=== PATIENT | female | born 1945 | race Caucasian/White ===

== ENCOUNTER → 2017-09-20 | Outpatient (CLI) | payer OTHER ==
[~2017-09-20] MED LIST: ASPIR 8181 MG PO; CO Q-10100 MG PO; PERCOCET; RED YEAST RICE600 MG PO; VITAMIN D1000 UNI1 PO
== END ==
LOC: ULTRA 12:58
DX: E04.2 Nontoxic multinodular goiter (principal); C91.10 Chronic lymphocytic leukemia of B-cell type not having achieved remission; R22.1 Localized swelling, mass and lump, neck

== ENCOUNTER → 2018-08-05 | Outpatient (CLI) | payer OTHER | LOC: RAD 09:57 | DX: Z12.31 Encounter for screening mammogram for malignant neoplasm of breast (principal) ==

== ENCOUNTER 2019-01-29 20:22 | Inpatient (IN) | payer OTHER ==
[~2019-01-29] VITALS: Ht 160 cm; Wt 53.3 kg
--- NOTE | ~2019-01-29 | HC ---
[facility] [place] [address] CONSULTATION Name: ISAI FENTON Room #: 240-P ADM IN M.R.#: [id number] Admission: 01/29/19 ������������������ Attend Phys: Roxie Mancilla MD Discharge: ������������������ Date of : 43 Report #: [id number] THIS REPORT FOR: //name// CC: Nelli Mancilla DATE OF SERVICE: 02/02/2019 HISTORY OF PRESENT ILLNESS: The patient is a 73-year-old white female with history of myasthenia gravis, prior breast cancer, status post mastectomy, and chronic lymphocytic leukemia, who was admitted with double vision, problems swallowing, and significant muscle weakness. She has been diagnosed with myasthenia crisis. She is currently in the intensive care unit with close involvement by Neurology. She has had Nephrology involved, was placed on IVIG and is now getting plasmapheresis. Pulmonary medicine has been monitoring closely and at this point, she has been able to avoid intubation, but her vital capacities are being closely monitored. We are seeing her in rehabilitation medicine consultation. PAST MEDICAL HISTORY: Includes myasthenia gravis diagnosed in September 2018, history of right breast CA, CLL, T and A, laparoscopy, and colonoscopy. MEDICATIONS: Please see the full medication listing. This includes vitamins, herbals, and supplements per report. ALLERGIES: DIPHENHYDRAMINE. HABITS: No history of tobacco or alcohol abuse. SOCIAL HISTORY: She lives alone in a 2-nyla house, one step in, and then 14 inside. Premorbid gait was utilizing a cane in the community. There is a son that lives nearby and a brother and [id number] that are close. REVIEW OF SYSTEMS: No current complaints of chest pain, shortness of breath, or abdominal discomfort. PHYSICAL EXAMINATION: GENERAL: A 73-year-old slender white female in no obvious distress. VITAL SIGNS: Last recorded temperature 97.8, pulse 86, respirations 13, and blood pressure 108/56. NEUROLOGIC: The patient is alert. She follows basic 1 step commands. Facies are symmetric. Central line is in place. Functional range of motion of the upper extremities strength is grade 4-/5 to 3+/5. DTRs are trace to 1. Lower extremities, no focal calf swelling, functional range of motion with strength grade 3+ to 4-/5. DTRs are trace to 1. She has standby assistance with sit to [facility] [address] [place] [address] CONSULTATION Name: ISAI FENTON Room #: 240-P [facility] IN .R.#: [id number] Admission: 01/29/19 ������������������ Attend Phys: Roxie Mancilla MD Discharge: ������������������ Date of : 43 Report #: [id number] stand and did ambulate a short distance with the IV pole. ASSESSMENT: A 73-year-old white female with the following problem list: 1. Myasthenia gravis exacerbation, is getting plasmapheresis. Is being closely monitored regarding her pulmonary condition. 2. Dysphagia. Speech therapy is involved. 3. Cervical disk disease. MRI was reviewed by Neurology and ____ thought to be the main cause of symptoms. 4. History of breast cancer with right mastectomy. 5. Chronic lymphocytic leukemia. PLAN: Therapy evaluations are continuing. She certainly may benefit from a short acute in-hospital inpatient rehabilitation stay to get some therapy to further improve, as far as strength and endurance and also to closely monitor her medical condition and Pulmonary condition. At this point, we will continue to follow along with you regarding her rehab therapy needs. ��������������������������������������������� ���������������������������������������� By: ��������������������������������������������� 1421 0126 Mega Bui MD /nt
[2019-01-29 20:31] VITALS: BP 150/85
[2019-01-29 21:17] LABS: ABSOLUTE NEUTROPHILS 6.7 thou/uL (1.4-8.2); BASOPHILS 0.7 % (0.0-2.0); EOSINOPHILS 1.1 % (0.0-3.0); HEMATOCRIT 41.8 % (37.0-47.0); HEMOGLOBIN 14.1 gm/dL (12.0-15.0); LYMPHOCYTES 43.7 % (24.0-44.0); MCH 30.1 pg (26.0-34.0); MCHC 33.7 g/dL (28.0-37.0); MCV 89.3 fL (80.0-100.0); MONOCYTES 5.4 % (1.0-8.0); PLATELET COUNT 192 thou/uL (150-400); POLYS 49.1 % (36.0-66.0); RBC 4.68 mil/uL (4.20-5.00); RDW 12.8 % (10.5-14.5); WBC 13.7 thou/uL (4.0-11.0)
[2019-01-29 21:24] LABS: ANION GAP 13 mmol/L (7-16); BUN 16 mg/dL (7-18); CHLORIDE 104 mmol/L (98-107); CO2 25 mmol/L (21-32); CREATININE 0.7 mg/dL (0.6-1.0); GLUCOSE 101 mg/dL (74-106); POTASSIUM 4.1 mmol/L (3.5-5.1); SODIUM 142 mmol/L (136-145)
[2019-01-29 21:37] LABS: ALBUMIN 3.8 g/dL (3.4-5.0); MAGNESIUM 1.9 mg/dL (1.8-2.4); SGOT 23 U/L (15-37); SGPT 22 U/L (30-65); TOTAL BILIRUBIN 0.7 mg/dL (<0.1-1.0); TOTAL PROTEIN 7.6 g/dL (6.4-8.2); TROPONIN-I <0.06 ng/mL (<0.06)
--- NOTE | 2019-01-29 23:15 | NUR ---
DR. MACIEL RAYMUNDO (NEUROLOGY) AT BEDSIDE FOR PATIENT EVALUATION
[2019-01-29 23:26] VITALS: BP 150/85
--- NOTE | 2019-01-29 23:29 | NUR ---
PATIENT HANDOFF TOOL SENT TO ICU. NURSE NOTIFIED
[2019-01-29] MEDS ORDERED: LIPITOR10 MG PO (23:40)
[2019-01-29] MEDS ORDERED: ARIMIDEX1 MG PO (23:40)
[2019-01-29] MEDS ORDERED: MESTINON60 MG PO (23:41)
[2019-01-30] VITALS (40 sets, daily range): BP systolic 120–159; BP diastolic 58–81
--- NOTE | 2019-01-30 02:27 | NUR ---
PATIENT ARRIVED TO THE UNIT AT APPROXIMATELY 0045. PATIENT IS AAOX4, MOVES ALL EXTREMETIES WELL, AND IS ON ROOM AIR. VSS. PATIENT HAS NO COMPLAINTS OF PAIN, SOA, OR NAUSEA. FAMILY IS PRESENT AT BEDSIDE. ORDERS RECEIVED AND IMPLEMENTED. ADMISSION COMPLETED, ALLERGIES UPDATED, AND MED REQUISITION HAS BEEN COMPLETED. FALL CONTRACT IS SIGNED AND PLACED IN THE CHART.
[2019-01-30 05:11] LABS: CALCIUM 9.2 mg/dL (8.5-10.1); CREATININE 0.6 mg/dL (0.6-1.0); POTASSIUM 3.8 mmol/L (3.5-5.1)
[2019-01-30 05:17] LABS: HEMATOCRIT 39.7 % (37.0-47.0); HEMOGLOBIN 13.2 gm/dL (12.0-15.0); MCH 29.9 pg (26.0-34.0); MCHC 33.3 g/dL (28.0-37.0); MCV 89.9 fL (80.0-100.0); RBC 4.41 mil/uL (4.20-5.00); RDW 12.6 % (10.5-14.5); WBC 11.6 thou/uL (4.0-11.0)
--- NOTE | 2019-01-30 05:37 | NUR ---
PATIENT HAS REMAINED STABLE THROUGHOUT THIS SHIFT. IMMUNE GLOBULIN IS INFUSING AND PATIENT HAS TOLERATED THE INFUSION WELL. VS REMAIN STABLE. NO S/SX OF ANY RESPIRATORY DISTRESS IS NOTED. HOURLY ROUNDING COMPLETED AND ALL ASSESSMENTS COMPLETED PER ICU PROTOCOL. PATIENT IS PROGRESSING TOWARD GOAL.
--- NOTE | 2019-01-30 08:44 | NUR ---
0842- RT STATES VC TEST RESULTS 1.76. HE WILL RE-CHECK IN 8 HOURS.
--- NOTE | 2019-01-30 10:05 | NUR ---
met with patient who has hx of Myathenia gravis 10/14. Patient resides at home alone. She has walkin shower on second level of home. She reports she holds on railing for steps. She uses a cane in community and not at home unless weak. She is independent with cooking and cleaning and does not drive. Her son lives nearby. Her brother and DAVID assist with driving for apts. Gave information for AD. Patients PCP is Dr Nelli Teague. [email or web address] following.
--- NOTE | 2019-01-30 10:10 | NUR ---
Nutrition: pt admit with myasthenia gravis crisis, improved. ST evaled and diet advanced to mechanically altered with Ensure TID. Pt had some questions related to protein shake/bar use at home which were answered. Ate most of breakfast. Reports recent few # wt decline due to illness. Decrease Ensure to once daily per pt request. Obtained food preferences. Consider low risk.
--- NOTE | 2019-01-30 12:47 | NUR ---
WHEN PT ARRIVED TO HOSPITAL SHE WAS EXPERIENCING MUSCLE WEAKNESS, DOUBLE BLURRY VISION AND TROUBLE SWALLOWING. SYMPTOMS IMPROVED OVERNIGHT AND PT STATED SHE WAS ONLY ABLE TO NOTICE THE DOUBLE BLURRY VISION. PT WAS SET UP WITH HER LUNCH TRAY AND STATED THAT HER SWALLOWING IS WORSE AGAIN AND THAT SHE IS NOTICING HER VISION IS MORE BLURRY AND HER MUSCLES ARE WEAKER. LUNCH TRAY REMOVED FROM PT AND PHYSICIANS PAGED. AWAITING CALL BACK. VSS. WILL CONTINUE TO CLOSELY MONITOR PT. LEFT EYE LID APPEARS TO BE DROOPY. FUTURES TRADER ARE EQUAL BILAT, FEET PUSHES AND PULLS ARE EQUAL, NO DRIFT IS NOTED WITH BILAT UPPER EXTREMITIES.
--- NOTE | 2019-01-30 16:06 | EKG ---
[address] [place] [address] ELECTROCARDIOGRAM REPORT Name: ISAI FENTON Room #: 240-P ADM IN M.R.#: [id number] ������������������ Admission: 01/29/19 ������������������ Attend Phys: Roxie Mnacilla MD Discharge: ������������������ Date of : 43 Report #: [id number] ����������������������������������������������������������������� [id number] THIS REPORT FOR: //name// [facility] ED Test Date: 2019-01-29 Test Time: 20:46:19 Pat Name: ISAI FENTON Department: Room: 240 Gender: F Lead Programmer Analyst: Linda ZAMBRANO : 1945 Requested By: Carlos Ravi Order Number: [id number] MD: Vidal Womack Measurements Intervals [place] Rate: 83 P: 70 MI: 155 QRS: 42 QRSD: 91 T: 69 QT: 352 QTc: 414 Interpretive Statements Sinus rhythm No significant abnormality Compared to ECG 07/18/2015 08:35:42 No significant changes Electronically Signed On 01-30-2019 16:06:31 CDT by Vidal Womack [email or web address] ��������������������������������������������� <ELECTRONICALLY SIGNED> ���������������������������������������� By: Vidal Womack MD, [facility] ��������������������������������������������� 01/30/19 1606 45 Vidal Womack MD, FACC /EPI
[2019-01-31] VITALS (35 sets, daily range): BP systolic 113–172; BP diastolic 48–108
[2019-01-31 05:22] LABS: ALBUMIN 3.1 g/dL (3.4-5.0); CALCIUM 8.8 mg/dL (8.5-10.1); CREATININE 0.5 mg/dL (0.6-1.0); POTASSIUM 3.9 mmol/L (3.5-5.1); TOTAL BILIRUBIN 0.5 mg/dL (<0.1-1.0); TOTAL PROTEIN 7.1 g/dL (6.4-8.2)
[2019-01-31 05:52] LABS: TSH 2.126 uIU/mL (0.358-3.740)
--- NOTE | 2019-01-31 06:02 | NUR ---
ASSUMED PATIENT CARE AT 1900. PATIENT LYING IN BED AND IS AAOX4 AND MOVES ALL EXTREMETIES WELL AND HAD GOOD EXCHANGE ADMINISTRATOR STRENGTH. PATIENT DOES HAVE DIFFICULTY SWALLOWING PILLS AND MILDLY COUGHS. PATIENT VITAL CAPACITY THAT IS ORDERED Q8H IS DECLINING DOWN TO 1.2. DR. MOON NOTIFIED OF THE NEW RESULTS. PATIENT ALSO NEEDED OXYGEN FOR A SHORT PERIOD WHILE SLEEPING SHE WAS DESATING DOWN TO 88%. PATIENT ALSO TIRES FROM GETTING UP EASILY TO COMMODE. HOURLY ROUNDING AND ASSESSMENTS COMPLETED PER ICU PROTOCOL. AT THIS TIME, PATIENT IS NOT PROGRESSING TOWARDS GOAL.
--- NOTE | 2019-01-31 12:37 | NUR ---
AAOX4. VERY PLESANT AND COOPERTIVE. DENIES PAIN. AMBULATED TO TOILET WITH SBA SLOW STEADY GAIT. IV LEFT FOREARM. FAIR APPETITE, DENIES DIFFICULTY WITH SWALLOWING. DENIES VISION PROBLEMS. RESP EVEN AND UNLABORED LUNGS CLEAR ON ROOM AIR.
--- NOTE | 2019-01-31 22:26 | HC ---
[facility] [place] [address] CONSULTATION Name: ISAI FENTON Room #: 240-P ADM IN M.R.#: [id number] Admission: 01/29/19 ������������������ Attend Phys: Roxie Mancilla MD Discharge: ������������������ Date of : 43 Report #: [id number] THIS REPORT FOR: //name// CC: Nelli Mancilla DATE OF SERVICE: 01/29/2019 HISTORY OF PRESENT ILLNESS: This is a 73-year-old female patient who was seen by me in the Emergency Room for myasthenia crisis. The patient started having symptoms of myasthenia in June of last year. It was mainly the weakness and subsequently, she developed diplopia. She was seen by Dr. Mcbride and started on Mestinon and was doing pretty well until about 2 days ago. She started having double vision, some difficulty swallowing and she called Dr. Mcbride today who asked her to come to the Emergency Room. Her vital capacity was only 1.7 liter and she was having significant double vision and swallowing difficulty, although it was not very pronounced. In fact, she took a Mestinon before she came in. In Emergency Room, she got another Mestinon. REVIEW OF SYSTEMS: From the patient only. She does not give me any good history of other medical problems. A 14-point review of system was carried out and was mostly unremarkable. She says that she has a chronic lymphocytic leukemia but her white count is only 13 here, so I suspect it must be mild. Her kidney function is normal. PAST MEDICAL HISTORY: Positive as described above. FAMILY HISTORY: Unremarkable. SOCIAL HISTORY: She drinks alcohol occasionally. PHYSICAL EXAMINATION: NEUROLOGIC: Indicates that this patient is alert, responsive, able to follow simple and complex command. Her mentation looks unremarkable. She has significant ptosis on both sides. She has a double vision. She does complain of some swallowing difficulty, but is able to swallow pills. She is weak in all 4 extremities. Her position sense is intact. CARDIAC: Unremarkable. VITAL SIGNS: Blood pressure is 150/85, respiration is 20. LABORATORY DATA: Her lab is mostly unremarkable except for white count of 13.7. IMPRESSION: This patient has myasthenia crisis. She has bulbar symptoms and she has pretty significant eye symptom. Her vital capacity is low. I discussed all her options with her. I discussed with her that we can start her on [facility] [address] [place] [address] CONSULTATION Name: ISAI FENTON Room #: 240-P [facility] IN .R.#: [id number] Admission: 01/29/19 ������������������ Attend Phys: Roxie Mancilla MD Discharge: ������������������ Date of : 43 Report #: [id number] steroids, but steroids can make her worse initially before they make her better. That can be problem with the borderline vital capacity. We talked about plasmapheresis versus gamma globulin. Initially, the pharmacy informed us that we do not have any gamma globulin. Therefore, contact was made at [facility] about transferring her there, but subsequently gamma globulin was found and the patient wanted to stay here. This patient is a pretty fragile patient at the moment and she needs to be closely monitored. Hopefully, she will be able to take the gamma globulin, but I have discussed all the potential side effects of gamma globulin with her. She needs to be in the ICU. We will go ahead and get the Pulmonary in case she goes down further. She will be watched very closely. All of it was discussed with the patient in detail and she understands that. Time spent 50 minutes, majority of that time counseling and coordinating. ��������������������������������������������� <ELECTRONICALLY SIGNED> ���������������������������������������� By: Navin Garcia MD ��������������������������������������������� 01/31/19 2226 2353 2103 Navin Gacria MD /nt
[2019-02-01] VITALS (43 sets, daily range): BP systolic 105–166; BP diastolic 47–111
[2019-02-01 04:23] LABS: HEMATOCRIT 37.9 % (37.0-47.0); HEMOGLOBIN 12.8 gm/dL (12.0-15.0); MCH 30.3 pg (26.0-34.0); MCHC 33.9 g/dL (28.0-37.0); MCV 89.5 fL (80.0-100.0); PLATELET COUNT 157 thou/uL (150-400); RBC 4.24 mil/uL (4.20-5.00); RDW 12.7 % (10.5-14.5); WBC 10.9 thou/uL (4.0-11.0)
[2019-02-01 04:30] LABS: CALCIUM 8.8 mg/dL (8.5-10.1); CREATININE 0.5 mg/dL (0.6-1.0); POTASSIUM 3.8 mmol/L (3.5-5.1)
[2019-02-01 04:36] LABS: APTT 30.2 Seconds (24.5-32.8); FIBRINOGEN 310.5 mg/dL (210-360); PROTIME 10.6 Seconds (9.3-11.4)
[2019-02-01 05:23] LABS: ABSOLUTE NEUTROPHILS 3.3 thou/uL (1.4-8.2); LARGE PLATELETS RARE; NUCLEATED RBCS 1 /100WBC
[2019-02-01 05:37] LABS: BE(vivo) -0.6 mmol/L (-2 to +3); HCO3 23.5 mmol/L (22.0-26.0); PCO2 37.3 mmHg (35.0-45.0); PO2 77.7 mmHg (80.0-100.0); pH 7.418 (7.360-7.450); sO2 95.8 % (92.0-98.0)
--- NOTE | 2019-02-01 06:04 | NUR ---
ASSUMED PATIENT CARE AT 1900. PATIENT ON COMMODE UPON ENTERING THE ROOM. RECEIVED BEDSIDE REPORT AND HELPED ASSIST PATIENT BACK TO BED. PATIENT BECAME TACHYPNIC AND STATED SHE ISN'T FEELING WELL AND IS SHORT OF AIR. PLACED THE NC ON HER. O2 SATS WERE 96 SO PLACED THE NC FOR COMFORT. PATIENT LIED IN BED QUIETLY UNTIL APPROXIMATELY 2014 WHEN ATTEMPTING TO GIVE HER HER MESTINOL, PATIENT STATED THAT SHE IS HAVING TIGHTNESS IN HER JAWS AND DON'T THINK SHE CAN SWALLOW THE PILL. PATIENT FURTHER STATED IT WAS WORSE THAN YESTERDAY. GAVE PATIENT A SMALL SIP OF WATER TO SEE HOW WELL SHE CAN SWALLOW. PATIENT MANAGED TO SWALLOW THE WATER BUT HELD IT IN HER MOUTH FOR AT LEAST 45 SEC[address] SANDOVAL THAT PATIENT WAS UNABLE TO SWALLOW HER MESTINOL AND THAT SHE HAS NOT RECOVERED FULLY FROM WEARING OUT FROM GETTING UP TO THE COMMODE AT 1845. DR. SANDOVAL STATED THAT HE WANT HER TO REMAIN IN BED AND NOT GET UP AND TO PLACE A BIGGS. HE ALSO WANTS HER TO LIMIT HER TALKING DURING PERIODS OF DISTRESS. DR. SANDOVAL CAME SHORTLY AFTER TO SEE PATIENT. PATIENT AT THIS TIME WAS HAVING DIFFICULTY SPEAKING WELL AND HAD MINOR SLURRED SPEECH. DR. SANDOVAL STATED THAT HE WANTS TO DO PLASMAPHERESIS IN THE AM. DR. SANDOVAL SPOKE WITH DR. MOON AND DR. MOON WANTED TO PLACE THE PATIENT ON BIPAP SINCE PATIENT HAD THE VITAL CAPACITY DONE AT THE TIME SHE WAS HAVING DISTRESS AND IT SHOWED. 0.7-0.8. DR. MOON IS ALSO GOING TO PLACE THE LINE IN THE AM FOR THE PLASMAPHERESIS. RENAL HAS BEEN CONSULTED TO GET PLASMAPHERESIS ORDERS. THIS RN SPOKE WITH THE [facility] AND THE RN THERE STATED THAT SHE NEED AN ORDER FOR 1 VOLUME EXCHANGE WITH ALBUMIN FOR REPLACEMENT FLUID AND ALSO IV CALCIUM GLUCOGNATE (1G IN 100 ML MIXED WITH NS) TO GIVE WITH EACH PLASMAPHERESIS SESSION. SHE STATED THAT NORMALLY THEY DO IT EVERY OTHER DAY FOR A TOTAL OF 5 SESSIONS.
--- NOTE | 2019-02-01 15:17 | NUR ---
AAXO4. VERY PLESANT AND COOPERTATIVE. ON ROOM AIR. DENIES DIFFICULTY WITH SWALLOWING OR FEELING SOA. DR. WHITTEN RECOMENDED PATIENT NOT TALK OR DO ANY EXTRA ACTIVITY. PATIENT HAS BEEN VERY QUIET TODAY AND BEEN EATING APPROX 50% OF MEALS.
--- NOTE | 2019-02-01 18:56 | NUR ---
[facility] NURSE WILL COME WITHIN THE HOUR TO PERFORM PLASMAPHORESIS. DIALYSIS CATHETER RIGHT IJ. CONTINUES TO DO WELL WITH LAST VITAL CAPACITY 1.3.
--- NOTE | 2019-02-01 21:57 | NUR ---
PLASMAPHERESIS STARTED AT 2130. CALCIUM GLUCONATE INFUSING AT THIS SAME TIME. PTS FAMILY AT THE BEDSIDE. TOLERATING PROCEDURE WITHOUT COMPLAINT.
[2019-02-02] VITALS (44 sets, daily range): BP systolic 101–135; BP diastolic 42–86
[2019-02-02 04:37] LABS: INR 1.2; PROTIME 12.7 Seconds (9.3-11.4)
[2019-02-02 04:40] LABS: ALBUMIN 3.7 g/dL (3.4-5.0); CALCIUM 8.7 mg/dL (8.5-10.1); CREATININE 0.6 mg/dL (0.6-1.0); PHOSPHORUS 4.3 mg/dL (2.5-4.9)
[2019-02-02 05:07] LABS: APTT 41.1 Seconds (24.5-32.8)
--- NOTE | 2019-02-02 06:10 | NUR ---
RESTING QUIETLY. SHE KEPT HER CPAP ON FROM 2300 UNTIL 0530. SHE IS NOW RESTING WITH 2 LITER N/C TO KEEP O2 SATS GREATER THAN 94%. CONTINUES ON IV FLUIDS. DENIES PAIN.
[2019-02-02 10:00] LABS: HEMATOCRIT 38.9 % (37.0-47.0); HEMOGLOBIN 12.9 gm/dL (12.0-15.0); MCHC 33.2 g/dL (28.0-37.0); MCV 90.4 fL (80.0-100.0); RBC 4.3 mil/uL (4.20-5.00); RDW 12.8 % (10.5-14.5); WBC 13.2 thou/uL (4.0-11.0)
--- NOTE | 2019-02-02 11:28 | HC ---
[facility] [place] [address] CONSULTATION Name: ISAI FENTON Room #: 240- ADM IN M.R.#: [id number] Admission: 01/29/19 ������������������ Attend Phys: Roxie Mancilla MD Discharge: ������������������ Date of : 43 Report #: [id number] THIS REPORT FOR: //name// CC: Nelli Mancilla DATE OF SERVICE: 02/01/2019 NEPHROLOGY CONSULTATION REASON FOR CONSULTATION: Management of plasmapheresis. HISTORY OF PRESENT ILLNESS: This 73-year-old patient was diagnosed 4 months ago with myasthenia gravis. She was treated with Mestinon and initially did well. She had a relapse with diplopia and progressive weakness, progressing to shortness of air. She was admitted 3 days ago, recently treated with Mestinon and gamma globulin. She transiently improved, but is now worsening. She has been ordered for a course of plasmapheresis treatments. PAST MEDICAL HISTORY: She had a mastectomy 4 years ago. She takes anastrozole for that and she also is on the Medicine for dyslipidemia and those are the only medications that she takes. FAMILY HISTORY: Negative for myasthenia gravis. SOCIAL HISTORY: She is . No cigarettes or alcohol. Lives by herself. REVIEW OF SYSTEMS: GENERAL: She has otherwise been feeling well. EYES: She has had double vision. ENT: Hearing okay, swallows okay. ENDOCRINE: No diabetes or thyroid disease. RESPIRATORY: Easily short-winded and this is worsening. CARDIAC: No chest pain, angina, palpitations, or history of heart failure. GASTROINTESTINAL: No nausea, vomiting, diarrhea, or bloody stools. GENITOURINARY: No dysuria or hematuria. No renal stone disease. NEUROLOGIC: As above. MUSCULOSKELETAL: No arthritis. PSYCHIATRIC: No depression or anxiety. PHYSICAL EXAMINATION: GENERAL: This is a reasonably well appearing patient. SKIN: Unremarkable. SKELETAL: Well developed, well nourished. No amputations. HEENT: Extraocular movements are full. No scleral icterus. Hearing and vision [facility] [address] [address] CONSULTATION Name: JOSSYISAIInez RIVAS Room #: 240-[facility] IN M.R.#: [id number] Admission: 01/29/19 ������������������ Attend Phys: Roxie Mancilla MD Discharge: ������������������ Date of : 43 Report #: [id number] intact. Mucous membranes moist. Tongue, buccal mucosa benign. NECK: Supple, no carotid bruits or lymphadenopathy. CHEST: Clear to auscultation. HEART: Regular. ABDOMEN: Soft and nontender. EXTREMITIES: Show no edema. Pulses intact. NEUROLOGIC: Grossly intact. LABORATORY DATA: The hemoglobin is 12.8 and platelets 157. Coags show an INR of 1.0. Sodium 140, potassium 3.8, chloride 107, bicarbonate 29, creatinine 0.5, BUN 12, calcium is 8.8 with an albumin of 3.1. ASSESSMENT AND PLAN: Myasthenic crisis in need of plasmapheresis. We will help with the management of plasmapheresis. We will recommend a course of 5 treatments over 7-8 days for complete plasma exchange and hopefully, this will be adequate. We will be helping to manage this with 1 plasma volume per exchange. We will carefully watch the coags and the serum calcium and supplement calcium with treatment. ��������������������������������������������� <ELECTRONICALLY SIGNED> ���������������������������������������� By: Anthony Meza MD ��������������������������������������������� 02/02/19 1128 0724 0920 Anthony Meza MD /nt
--- NOTE | 2019-02-02 13:02 | NUR ---
SW reviewed chart and spoke with nursing and attending physician. 5N consulted to evaluate pt for admission to inpt acute rehab. Plasmapheresis started yesterday and will have 5 days of treatment. Awaiting therapy evals and Lopez consult. NICOLÁS met with pt at bedside to provide update and discuss post-acute plans. Pt is agreeable with [facility] if needed. Pt has done outpatient therapy in the past, but has not been in a Rehab/SNF. NICOLÁS is following to assist as needed with discharge planning.
--- NOTE | 2019-02-02 18:39 | NUR ---
PATIENT ASSESSMENTS AND VITAL SIGNS DOCUMENTED. SHE HAS DENIED PAIN TODAY. NEEDS ADDRESSED SHE EXPRESSED THEM. HOURLY ROUNDING PEFORMED. SHE HAD PLASMAPHERESIS TODAY. SEE FLOW SHEET OF THEIR DOCUMENTATION. CALCIUM GLUCONATE GIVEN PER RENAL ORDERS. NURSE TO CONTINUE TO MONITOR PATIENT STATUS.
[2019-02-03] VITALS (23 sets, daily range): BP systolic 95–131; BP diastolic 40–76
--- NOTE | 2019-02-03 03:33 | NUR ---
ASSUMED PT CARE AROUND 1900. A&OX4. DENIED ANY PAIN ALL SHIFT. NO S/S RESP DISTRESS. PT WORE BIPAP FOR ROUGHLY 6 HOURS DURING THE NIGHT. TOLERATED WELL. PER RT, VITAL CAPACITY WAS 1.5 THIS MORNING. PT REQUESTED TO STOP WEARING BIPAP. RT PLACED PT ON 1L NC AROUND 0315. O2 SATS STABLE. REPOSITIONED WITH PILLOWS TO PREVENT SKIN BREAKDOWN. PT SLEPT ON AND OFF DURING THE NIGHT. PT ENCOURAGED TO REST AND HAVE MINIMAL EXERTION. BIGGS TO DD WITH ADEQUATE URINE OUTPUT. IVF INFUSING ORDERED. FALL PRECAUTIONS IN PLACE. PROGRESSING SLOWLY TOWARD POC GOALS. WILL CONTINUE TO MONITOR FURTHER.
[2019-02-03 05:25] LABS: HEMATOCRIT 38.3 % (37.0-47.0); HEMOGLOBIN 12.5 gm/dL (12.0-15.0); MCH 29.9 pg (26.0-34.0); MCHC 32.7 g/dL (28.0-37.0); MCV 91.3 fL (80.0-100.0); RBC 4.19 mil/uL (4.20-5.00); WBC 12.7 thou/uL (4.0-11.0)
[2019-02-03 05:34] LABS: APTT 40.2 Seconds (24.5-32.8); FIBRINOGEN 111.8 mg/dL (210-360); INR 1.2; PROTIME 12.4 Seconds (9.3-11.4)
[2019-02-03 05:43] LABS: ALBUMIN 3.9 g/dL (3.4-5.0); CALCIUM 8.7 mg/dL (8.5-10.1); CREATININE 0.5 mg/dL (0.6-1.0); PHOSPHORUS 3.5 mg/dL (2.5-4.9); POTASSIUM 4.3 mmol/L (3.5-5.1)
--- NOTE | 2019-02-03 08:34 | NUR ---
PATIENT SEEN BY DR. BAIG FOR ACUTE REHAB CONSULT. PATIENT MAY BE A GOOD CANDIDATE FOR REHAB, BUT THERAPY ON HOLD TILL 02/06. WILL AT THAT TIME SEE HOW PATIENT IS DOING IN THERAPY AND REASSESS APPROPRIATENESS FOR REHAB ADMISSION. THANK YOU FOR THIS REFERRAL.
--- NOTE | 2019-02-03 09:50 | NUR ---
Nutrition: pt admitted with myasthenia gravis crisis and seen per followup. ST continues to follow for dysphagia currently on mechanically altered chopped diet. Pt eating 40-50% of meals and supplements once daily. Changing order from ensure to ensure clear due to pt reports tries to avoid soy with hx of CA. Pt c/o of present issues related to dysphagia during visit and RD requested ST revisit. Food preferences previously obtained. Most recent weight down 4# from admit, request new weight for accuracy. Receives plasmaphoresis QOD. Continue to monitor/encourage adequate intake. Low risk.
--- NOTE | 2019-02-03 11:09 | NUR ---
PATIENT IS ON LIMITED ACTIVITY PER DR. SANDOVAL; THEREFORE, O.T. SERVICES ARE ON HOLD; NEW ORDERS ARE NEEDED WHEN/IF APPROPRIATE.
--- NOTE | 2019-02-03 15:19 | NUR ---
CARE TEAM INDIATED THAT PT IS PROGRESSING TOWARD GOAL OF DISCHARGE. 5N IS FOLLOWING FOR POSSIBLE ADMISSION ONCE PT IT MEDICALLY STABLE. CM TO FOLLOW INDICATED WITH DC PLANNING.
--- NOTE | 2019-02-03 15:22 | NUR ---
ASSUMED CARE OF PT AT 0700 THIS SHIFT. PT HS BEEN COOPERATIVE, HAS DENIED ANY PAIN THIS SHIFT. PT HAS BEEN HAVING ISSUES WITH SWALLOWING FOOD, PT FEELS LIKE IT WAS GETTING STUCK AND NOT GOING ALL THE WAY TO HER STOMACH. PHYSICIANS ARE AWARE, SPEECH THERAPY HAS CHANGED DIET TO PUREED. ASSESSMENTS ARE DOCUMENTED. PT IS CURRENTLY RESTING COMFORTABLY IN ROOM. PT HAS HAD VISITORS THIS SHIFT, EDUCATION WAS PROVIDED. PLAN OF CARE IS TO CONTINUE TO MONITOR PT CLOSELY AT THIS TIME.
--- NOTE | 2019-02-03 17:47 | NUR ---
PT WITH ORDER FOR LIMITED ACTIVITY PER NEUROLOGY DURING PLASMOPHERESIS TREATMENTS FOR MYASTHENIA GRAVIS CRISIS. REQUEST NEW P.T. ORDER ONCE PT MEDICAL STATUS IS APPROPRIATE FOR ACTIVITY PROGRESSION.
[2019-02-04] VITALS (27 sets, daily range): BP systolic 84–158; BP diastolic 38–86
[2019-02-04 05:36] LABS: ALBUMIN 3.5 g/dL (3.4-5.0); CALCIUM 8.8 mg/dL (8.5-10.1); CREATININE 0.4 mg/dL (0.6-1.0); FIBRINOGEN 166.8 mg/dL (210-360); INR 1.1; PHOSPHORUS 3.3 mg/dL (2.5-4.9); POTASSIUM 4.1 mmol/L (3.5-5.1); PROTIME 11.1 Seconds (9.3-11.4)
[2019-02-04 05:37] LABS: APTT 24.5 Seconds (24.5-32.8)
--- NOTE | 2019-02-04 05:40 | NUR ---
ASSUMED PT CARE AT 1900 WITH NO SIGN OF DISTRESS NOTED. PT IS ALERT AND ORIENTED AND DENIES ANY NEED. ASSESSMENT CHARTED AND DOCUMENTED, SCHEDULED MEDS ADMINISTERED TO PT. PT TOLERATED PO INTAKE. PT IS PLACED ON BIPAP FOR THE NIGHT. PT IS STABLE. CONTINUE NURSING POC. DENIES ANY FURTHER NEEDS AT THIS TIME.
--- NOTE | 2019-02-04 15:47 | NUR ---
5 N FOLLOWING. CLARIFIED WITH TURN OUT AND NEUROLOGIST TODAY, HOLD WORKING WITH PT/OT FOR NOW. THERAPISTS UPDATED.
[2019-02-05] VITALS (23 sets, daily range): BP systolic 104–165; BP diastolic 42–87
[2019-02-05 05:32] LABS: ALBUMIN 3.5 g/dL (3.4-5.0); CALCIUM 8.7 mg/dL (8.5-10.1); CREATININE 0.5 mg/dL (0.6-1.0); PHOSPHORUS 3.4 mg/dL (2.5-4.9); POTASSIUM 3.6 mmol/L (3.5-5.1)
--- NOTE | 2019-02-05 05:45 | NUR ---
ASSUMED PT CARE AT 1900 WITH NO SIGN OF DISTRESS NOTED IN PT. PT IS ALERT AND ORIENTED AND DENIES ANY NEEDS AT THIS TIME. ASSESSMENT COMPLETED AND CHARTED, VITAL SIGNS STABLE, NSR. SCHEDULED MEDS ADMINISTERED TO PT AND PT TOLERATED PO INTAKE. PT HAD A BM. NO SIGN OF DISTRESS NOTED, CONTINUE TO MONITOR, DENIES ANY FURTHER NEEDS AT THIS TIME.
--- NOTE | 2019-02-05 14:41 | NUR ---
DENIES DISCOMFORT, SR, RESP EVEN AND UNLABORED WHEN SEMI-FOWLERS, DIFFICULT TO BREATHE WHEN HEAD LOWERED, INTERMITTENTLY USING INCENTIVE SPIROMETER PULLING 600, POOR APPETITE AND WHEN EATING THE FOOD "CATCHES IN HER CHEST", THEN WILL GO DOWN. NO COUGHING, CHOKING INVOLVED. FOLE WITH LARGE AMOUNT CL YELLOW URINE OUT PUT. FAMILY MEMBERS PRESENT, INQUIRED ON PT STATUS, UPDATED.
--- NOTE | 2019-02-05 17:30 | NUR ---
PT FEELS WEAK AND TIRED. SHE DOESN'T FEEL STRONG ENOUGH TO BE ABLE TO USE THE BEDPAN OR GET UP TO THE BEDSIDE COMMODE WHEN THE BIGGS IS REMOVED. SHE WANTED THE BIGGS TO REMAIN FOR NOW.
[2019-02-06] VITALS (38 sets, daily range): BP systolic 97–147; BP diastolic 43–97
[2019-02-06 04:21] LABS: HEMATOCRIT 39.4 % (37.0-47.0); MCH 29.9 pg (26.0-34.0); MCHC 32.9 g/dL (28.0-37.0); MCV 90.7 fL (80.0-100.0); PLATELET COUNT 152 thou/uL (150-400); RBC 4.35 mil/uL (4.20-5.00); RDW 12.8 % (10.5-14.5); WBC 16.4 thou/uL (4.0-11.0)
[2019-02-06 04:34] LABS: ALBUMIN 3.7 g/dL (3.4-5.0); CREATININE 0.5 mg/dL (0.6-1.0); PHOSPHORUS 4.4 mg/dL (2.5-4.9); POTASSIUM 3.9 mmol/L (3.5-5.1)
[2019-02-06 06:13] LABS: ABSOLUTE NEUTROPHILS 7.5 thou/uL (1.4-8.2)
[2019-02-06 06:19] LABS: ANISOCYTOSIS 1+; PLATELET ESTIMATE NORMAL
--- NOTE | 2019-02-06 06:34 | NUR ---
ASSUMED PT CARE AT 1930 WITH PT ALERT AND ORIENTED. NO SIGN OF DISTRESS NOTED IN PT. ASSESSMENT COMPLETED AND CHARTED. VITAL SIGNS STABLE. SCHEDULED MEDS ADMINISTERED TO PT. PT TOLERATED PO INTAKE. PT IS PLACED ON BIPAP AT NIGHTTIME. VITAL CAPACITY OBTAINED. FAMILY AT BEDSIDE. PT IS STABLE THROUGHOUT THE NIGHT. DENIES ANY FURTHER NEEDS AT THIS TIME.
--- NOTE | 2019-02-06 09:49 | NUR ---
PT HAD TWO UNITS OF PLASMA INFUSED. AT END OF INFUSION PT STATES SHE IS ITCHY. PT SKIN OBSERVED AND HAS HIVES OF L FOREARM, R THIGH AND R SIDE OF BACK. PHYSICIAN NOTIFIED AND LAB NOTIFED.
--- NOTE | 2019-02-06 12:45 | NUR ---
PATIENT WILL HAVE LAST PLANNED PLASMAPHERESIS ON 02/07. THERAPY TO REASSESS PATIENT WHEN PLASMAPHERESIS TX IS COMPLETE AND PATIENT HAS BEEN MEDICALLY CLEARED TO START THERAPY BY NEUROLOGIST. WILL RE-EVALUATE PATIENT'S APPROPRIATENESS FOR INPATIENT ACUTE REHAB AT THAT TIME. THANK YOU FOR THIS REFERRAL.
--- NOTE | 2019-02-06 14:32 | NUR ---
JERMEIE FROM [facility] CALLED AND ASKED THAT WE CALL DR. MCCLURE IN REGARDS TO THE PT'S PLASMAPHORESIS TREATMENT SCHEDULED ON SATURDAY. THE [facility] WOULD LIKE TO SWITCH DAYS FROM THIS THURSDAY 02/08 TO FRIDAY 02/[address] MCCLURE. RN SPOKE WITH DR MCCLURE AND HE STATED HE WAS FINE TO MOVE THE TREATMENT DAY FROM SATURDAY TO SATURDAY. [facility] CALLED BACK AND RN SPOKE WITH RN THERE AND LET HER KNOW OF OKAY TO SWITCH DAYS PER DR. MCCLURE.
--- NOTE | 2019-02-06 15:04 | NUR ---
ON-GOING ASSESSMENT: CM REVIEWED CHART AND SPOKE WITH ATTENDING. PT IS ON PLASMAPHERESIS AND TO GET (5 TOTAL) LAST DATE SCHEDULED FOR SATURDAY. 5N IS FOLLOWING AND WILL SEE HOW PATIENT DOES WITH THERAPIES AFTER THIS IS COMPLETED. CM WILL CONTINUE TO FOLLOW TO ASSIST NEEDED.
--- NOTE | 2019-02-06 18:17 | NUR ---
ASSUMED CARE AT 0700. PT A&OX4. PT ON ROOM AIR. VSS. PT CONTINUES TO USE ACCESSORY MUSCLES TO BREATH. PT HAD ORDER YESTERDAY TO REMOVE [employer] CATHETER AND GET UP TO CHAIR. PT FELT TO WEAK YESTERDAY AND TODAY TO GET OUT OF BED. DISCUSSED WITH CC PHYSICIAN AND HE STATED TO KEEP CATHETER IN TODAY AND WE WILL REEVALUATE IT TOMORROW MORNING. PT ATE VERY SMALL AMOUNT OF BREAKFAST AND NO LUNCH. PT DID EAT 3/4 OF DINNER TRAY TONIGHT. PT HER PILLS ONE AT A TIME AND ASKED FOR THE LARGER PILLS TO BE SPLIT IN HALF. PT DID NOT HAVE ANY SWALLOWING DIFFICULTY TODAY. PT HAD MULTIPLE FAMILY MEMBERS AND A FRIEND STOP BY TO VISIT THIS SHIFT. PT REQUESTED A SLEEPING AID FOR TONIGHT AND HOSPITALIST NOTIFIED AND ORDERED MELATONIN. WILL CONTINUE TO MONITOR PT CLOSELY. FALL PRECAUTIONS IN PLACE.
[2019-02-07] VITALS (47 sets, daily range): BP systolic 95–150; BP diastolic 37–92
--- NOTE | 2019-02-07 03:40 | NUR ---
RECEIVED PT'S CARE AT 1909; PT. ON BED; AOX4; NO C/O PAIN; DURING ASSESSMENT PT. AOX4; ABLE TO SWALLOW PILLS; OFFER COMPLETE BED BAD LATER ON THE NIGHT; AGREES; BED BAD GIVEN AT 2144; PT. ABLE TO PERFORM BED BAD WITH ASSISSTANCE; ST. WANTS TO STAY ON BACK DURING THE NIGHT IN ORDER TO SLEEP; EDUCATED ABOUT THE BENEFITS OF TURNING FROM SIDE TO SIDE; ST. UNDERSTANDING; REFUSED TURNING THROUGH THE NIGHT; REQUESTED METFORMIN AFTER 2199; METFORMIN GIVEN AT 2211; ABLE TO REST THROUGH THE NIGHT WITH EYES CLOSE; EASILY AROUSABLE TO GIVE MEDICATION DURING THE NIGHT; VC AT 1930 2.1; VC AT 0327 1.4; MONITORING; ASSESSMENT CHARGED; FOLLOWING POC; WILL PASS ON REPORT.
--- NOTE | 2019-02-07 17:04 | NUR ---
PATIENT ASSISTED TO CHAIR THIS PM AND SHE TOLERATED WELL. SHE HAS BEEN SITTING FOR ABOUT TWO HOURS OF THIS NOTE AND DENIES TIRENESS OR PAIN. FAMILY HERE TO VISIT AND SHE DOES SEEM TO BE IN GOOD SPIRITS. SHE IS ALERT ORIENTED X4. RESPIRATIONS NON LABORED. ROOM AIR. WILL CONT WITH PLAN OF CARE.
[2019-02-08] VITALS (39 sets, daily range): BP systolic 90–135; BP diastolic 43–85
--- NOTE | 2019-02-08 20:06 | NUR ---
SHIFT SUMMARY PATIENT PROGRESSING TOWARDS OUTCOME GOALS EVIDENT BY. UP TO THE COMMODE TO VOID SEVERAL TIMES TODAY AND UP IN THE CHAIR FOR BREAKFAST. VISITED WITH FAMILY. USE OF IS ENCOURAGED. NO DIFFICULTY WITH DIET NOTED. REASSURANCE GIVEN AND QUESTIONS ANSWERED. VSS
[2019-02-09] VITALS (54 sets, daily range): BP systolic 97–135; BP diastolic 32–74
--- NOTE | 2019-02-09 05:40 | NUR ---
ASSUMED PT CARE AT 1900 WITH NO SIGN OF DISTRESS NOTED, PT IS ALERT AND ORIENTED. NO FAMILY AT BEDSIDE. ASSESSMENT CHARTED AND COMPLETED. VITAL SIGNS STABLE. SCHEDULED MEDS ADMINISTERED TO PT. PT IS TO RECEIVE LAST ROUND OF PLASMAPHERESIS ON SATURDAY. PT IS STABLE AND AMBULATES OUT OF BED TO THE BEDSIDE COMMODE WITH STAND BY ASSIST. PT WEARS BIPAP AT NIGHTTIME. VITAL CAPACITY>2. NO SIGN OF DISTRESS NOTED. DENIES ANY FURTHER NEEDS AT THIS TIME. CONTINUE NURISNG POC.
[2019-02-09 08:48] LABS: ABSOLUTE NEUTROPHILS 7.2 thou/uL (1.4-8.2); BASOPHILS 0.3 % (0.0-2.0); EOSINOPHILS 0.5 % (0.0-3.0); HEMATOCRIT 38.4 % (37.0-47.0); HEMOGLOBIN 12.7 gm/dL (12.0-15.0); LYMPHOCYTES 39.4 % (24.0-44.0); MCHC 33.1 g/dL (28.0-37.0); MCV 90.5 fL (80.0-100.0); MONOCYTES 4.1 % (1.0-8.0); PLATELET COUNT 157 thou/uL (150-400); POLYS 55.7 % (36.0-66.0); RBC 4.24 mil/uL (4.20-5.00); RDW 12.9 % (10.5-14.5); WBC 12.9 thou/uL (4.0-11.0)
[2019-02-09 08:57] LABS: CALCIUM 9.5 mg/dL (8.5-10.1); CREATININE 0.5 mg/dL (0.6-1.0); POTASSIUM 3.7 mmol/L (3.5-5.1)
[2019-02-09 09:03] LABS: ALBUMIN 3.7 g/dL (3.4-5.0); TOTAL BILIRUBIN 0.6 mg/dL (<0.1-1.0); TOTAL PROTEIN 6.5 g/dL (6.4-8.2)
--- NOTE | 2019-02-09 11:06 | NUR ---
ASSUMED CARE THIS AM, AWAKE AND ALERT, NO COMPLAINTS OF PAIN. ON ROOM AIR AND NORMAL BREATHING PATTERN. FEELS WEAK. WILL RECIEVE LAST DOSE OF PLAMAPHORESIS TODAY AND POSSIBLE BE TRANSFERED TO REHAB UNIT.
[2019-02-09] MEDS ORDERED: ENOXAPARIN40 MG/0.1 SUBQ (14:42)
[2019-02-09] MEDS ORDERED: PREDNISONE 20 M20 M1 PO (14:42)
[2019-02-09] MEDS ORDERED: MELATONIN3 MG PO (14:42)
--- NOTE | 2019-02-09 15:46 | NUR ---
PT RECIEVED HER 5TH AND LAST PLASMAPHERESIS TREATMENT LATE THIS AFTERNOON TODAY. PT AND OT VARIENCED PT WAS GETTING PLASMAPHERESIS. PT AND OT TO ACCESS TOMORROW AM. PT IS AWARE AND AGREEABLE. CM TO FOLLOW INDICATED WITH DC PLANNING.
--- NOTE | 2019-02-09 19:32 | NUR ---
PLASMAPHORESIS THERAPY COMPLETE. PATIENT TO WORK WITH PT TOMORROW AND WILL TRANSFER TO REHAB UNIT. [employer] D[employer] CATHETER TO BE REMOVED BEFORE TRANSFER.
[2019-02-10] VITALS (12 sets, daily range): BP systolic 104–123; BP diastolic 49–57
--- NOTE | 2019-02-10 03:49 | NUR ---
LAST PLASMAPHORESIS PERFORMED DURING DAY SHIFT YESTERDAY. PLANS ARE DC/TRANSFERRED TO ACUTE REHAB TODAY. NO SIGNIFICANT CHANGES DURING SHIFT. CONTINUE WITH PLAN OF CARE
--- NOTE | 2019-02-10 18:21 | NUR ---
pt dcing to 5N acute rehab today. 5N cm to follow for dc planning. Pt's goal is to return home.
--- NOTE | 2019-02-10 18:57 | NUR ---
ASSUMED CARE @ 0700 02/10/19, PT ALERT AND ORIENTED X 4, PYROSTIGMINE DOSE CHANGED BY NEUROLOGY . PT ON RA, SATS IN THE 90'S, NO SIGNS OF SOA. PT SR ON THE MONITOR. PT ON A PUREED DIET, PT ABLE TO TOLERATE PILLS IN HALVES. PT WENT DOWN FOR A VIDEO SWALLOW EVALUATION TODAY. PT HAD AN UNEVENTFUL NIGHT, PT DISCHARGED AND TRANPORTED TO [address] [place] [address], NO COMPLICATIONS NOTED.
[2019-02-10] MEDS ORDERED: MESTINON60 MG/5 ML PO (22:40)
== END 2019-02-10 18:30 | DRG 56 ==
LOC: ER 20:22 → EROBS 22:58 → ICU 22:58
PROVIDERS: Emergency Medicine; Hospitalist; Internal Medicine Nephrology; Nurse Practitioner Family; Pediatrics; Psychiatry & Neurology Neuromuscular Medicine; ADMIT Internal Medicine
DX: G70.01 Myasthenia gravis with (acute) exacerbation (principal); J96.01 Acute respiratory failure with hypoxia; C91.10 Chronic lymphocytic leukemia of B-cell type not having achieved remission; E87.0 Hyperosmolality and hypernatremia; R13.10 Dysphagia, unspecified; Z60.2 Problems related to living alone; M50.30 Other cervical disc degeneration, unspecified cervical region; E78.5 Hyperlipidemia, unspecified; Z85.3 Personal history of malignant neoplasm of breast; Z79.899 Other long term (current) drug therapy; Z79.82 Long term (current) use of aspirin; Z90.11 Acquired absence of right breast and nipple; Z71.89 Other specified counseling; Z88.8 Allergy status to other drugs, medicaments and biological substances
CPT/HCPCS: 10078

== ENCOUNTER 2019-02-10 13:33 | Inpatient (IN) | payer OTHER ==
[~2019-02-10] VITALS: Ht 160 cm; Wt 60.4 kg
--- NOTE | ~2019-02-10 | PLAN ---
[facility] [place] [address] REHAB UNIT PLAN OF CARE Name: ISAI FENTON Room #: 516-1 ADM IN M.R.#: [id number] Admission: 02/10/19 ������������������ Attend Phys: Mega Bui MD Discharge: ������������������ Date of : 43 Report #: [id number] THIS REPORT FOR: //name// CC: Mega Cheng DATE OF SERVICE: 02/13/2019 PROGRESS NOTE/OVERALL PLAN OF CARE SUBJECTIVE: The patient is seen back today in followup. She is in no distress. Last recorded temperature 98.1, pulse 71, respirations 24, blood pressure 133/60. She is in good spirits. Transfers are standby assistance with gait, standby assistance 150 feet with four-wheeled walker. In occupational therapy, lower body dressing is min assist. She is involved with speech therapy. She is on mechanical soft with thin-liquid diet. Being monitored with her myasthenia. ASSESSMENT: 1. Myasthenia gravis exacerbation. 2. Functional mobility, activities of daily living and swallowing concerns. 3. Dysphagia. 4. Recent acute hypoxic respiratory failure. 5. Chronic lymphocytic leukemia. 6. History of breast cancer with right mastectomy. PLAN: The overall plan of care is based on the preadmission screen, post-admission physician evaluation and information garnered from therapy assessments. 1. Estimated length of stay is around 10 days-2 weeks. 2. Medical prognosis is reasonably good. 3. Anticipated interventions includes the interdisciplinary acute inpatient rehabilitation program. 4. Anticipated functional outcomes would be for the patient to become modified independent with transfers, mobility, ADLs as well as monitoring with her swallowing issues so she can return back to the home setting. Goal would be independent at a walker level. 5. Discharge destination would be back to the home setting where she lives alone, but has involved son and sibling. 6. Expected therapy by discipline includes PT, OT and speech 1 hour per day each 5 days a week throughout the duration of the acute inpatient rehabilitation stay. The patient is having close followup with Neurology as well as Pulmonary Medicine and the hospitalist service while she is on the acute rehab morrison. ��������������������������������������������� ���������������������������������������� By: ��������������������������������������������� 0909 0004 Mega Bui MD /PMT
--- NOTE | ~2019-02-10 | H ---
[facility] [place] [address] HISTORY AND PHYSICAL Name: ISAI FENTON Room #: 516-1 ADM IN M.R.#: [id number] Admission: 02/10/19 ������������������ Attend Phys: Mega Bui MD Discharge: ������������������ Date of : 43 Report #: [id number] THIS REPORT FOR: //name// CC: Mega Cheng DATE OF SERVICE: 02/10/2019 HISTORY AND PHYSICAL/POSTADMISSION PHYSICIAN EVALUATION HISTORY OF PRESENT ILLNESS: The patient is a 73-year-old white female with history of myasthenia gravis, prior breast cancer status post mastectomy, CLL, admitted with double vision problems, swallowing and significant muscle weakness. She was diagnosed with myasthenia crisis. She was closely observed in the intensive care unit with close involvement by Neurology as well as Nephrology involved placing her on IVIG and getting plasmapheresis. Pulmonary Medicine was closely involved and she was able to avoid intubation. We held off on her therapy and she now has improved, transferred out of the ICU, was allowed to start doing submaximal exercises and she has now been admitted for acute in-hospital inpatient rehabilitation. She has had a significant functional decline from her premorbid level. PAST MEDICAL HISTORY: Includes myasthenia gravis, diagnosed in 09/2018, history of right breast cancer, CLL, TNA, laparoscopy, colonoscopy. MEDICATIONS: Please see the full medication listing. This includes vitamins, herbals, and supplements. ALLERGIES, DIPHENHYDRAMINE. HABITS: No history of tobacco or alcohol abuse. SOCIAL HISTORY: Lives alone in a 2-nyla house, one step in, 14 inside. Premorbidly. Gait was utilizing a cane in the community. There is a son that lives nearby and a brother and [id number] that are noted to be closed. REVIEW OF SYSTEMS: No complaints of chest pain, shortness of breath or abdominal discomfort. PHYSICAL EXAMINATION: GENERAL: A 73-year-old slender white female in no obvious distress. VITAL SIGNS: Last recorded temperature 98.4, pulse 82, respirations 14, and blood pressure 110/52. NEUROLOGIC: The patient is alert. HEAD, EYES, EARS, NOSE, AND THROAT: Facies appeared symmetric. CHEST: Sounded clear to auscultation. [address] [address] HISTORY AND PHYSICAL Name: ISAI FENTON Room #: [facility] ADM IN .R.#: [id number] Admission: 02/10/19 ������������������ Attend Phys: Mega Bui MD Discharge: ������������������ Date of : 43 Report #: [id number] CARDIOVASCULAR: Regular rate and rhythm. ABDOMEN: Bowel sounds positive, nontender. She is of slender build. GENITOURINARY AND RECTAL: Deferred. EXTREMITIES: Functional range of motion of the upper extremity strength is grade 4- to 3+/5. DTRs are trace to 1. Lower extremities, no focal calf swelling, and functional range of motion with strength grade 3+ to 4- /5. DTRs are trace to 1. Transfers are min assists in the most recent gait is mod assist 10 feet without an assistive device. ASSESSMENT: A 73-year-old white female with the following problems: 1. Myasthenia gravis exacerbation. 2. Functional mobility, ADLs and swallowing concerns. 3. Dysphagia. 4. Acute hypoxic respiratory failure. 5. Chronic lymphocytic leukemia. 6. History of breast cancer, right mastectomy. PLAN: The patient is admitted for acute in-hospital inpatient rehabilitation. From a postadmission physician evaluation perspective, there are no relevant changes since the preadmission screening. Please see the review of prior and current medical and functional conditions and comorbidities. Please see the patient's previous and current functional status. As far as risk of complication, she does have the multiple medical comorbidities as noted above. Initial plan of care involves the interdisciplinary acute inpatient rehabilitation program with goal of maximizing her functional independence, so she can hopefully return back to her prior living situation. Measurable functional goals would be for the patient to become modified independent with transfers, mobility, ADLs and to further improve as far as basic swallowing issues. Her diet was advanced from pureed to a mechanical soft. Prognosis is reasonably good with estimated length of stay probably at least 10 days to 2 weeks pending progress. Potential barriers would include her multiple medical comorbidities and decreased functional status. The patient will be given submaximal exercises with her myasthenia gravis as part of her functional program. She meets diagnostic criteria for an acute in-hospital inpatient rehabilitation stay. She meets the medical necessity criteria and we will have the client development consultant physicians continue to follow. She does have the tolerance for therapies and has appropriate discharge goals back to the home setting. ��������������������������������������������� ���������������������������������������� By: ��������������������������������������������� 0935 1002 Mega Bui MD /PMT
[~2019-02-10 13:33] MED LIST changes: +ARIMIDEX1 MG PO; +ENOXAPARIN40 MG/0.1 SUBQ; +LIPITOR10 MG PO; +MELATONIN3 MG PO; +MESTINON60 MG PO; +PREDNISONE 20 M20 M1 PO
--- NOTE | 2019-02-10 21:38 | NUR ---
ASSUMED CARE AT APPROX 1840. PATIENT A/O X4. C/O DOUBLE VISION. VSS. UP X1 ASSIST GB CGA PIVOT TO BSC TO VOID. CONTINENT. ADMISSION ASSESSMENT COMPLETE. MEDS FAXED TO PHARMACY. FALL PRECAUTIONS IN PLACE, PATIENT ORIENTED TO 5N AND FALL PRECAUTIONS. PATIENT'S SON AT BEDSIDE, ASSISTED WITH ADMISSION HISTORY INTAKE. PATIENT CALLS APPROPRIATELY FOR ASSISTANCE. THREAD MACHINE OPERATOR RN CONTACTED NIGHT HOSPITALIST RECREATION INSTRUCTOR TO CLARIFY MED ORDERS, ORDERS RECEIVED. PATIENT RESTING IN BED AT CHANGE OF SHIFT. BED ALARM ON.
[2019-02-10] MEDS ORDERED: MESTINON60 MG/5 ML PO (22:40)
--- NOTE | 2019-02-11 03:37 | NUR ---
PATIENT ASSESSED AND IS ALERT X 4. SKIN WARM AND DRY. RESP EVEN AND UNLABORED. TAKES THIN LIQUIDS AND PUREED DIET. BIPAP ON WHILE SLEEPING. LUNGS CTA. UP TO BSC WITH 1Q PERSON ASSIST OR BATHROOM. RIGHT LIMB ALERT. HAS L AC AND LEFT FA SL. FLUSHES WELL. RFEMAINS A FALL RISK. MEDS SPLINT IN HALF FOR HER TO SWOLLOW WELL. ON ROOM AIR. DENIES ANY PAIN. CONT PLAN OF CARE.
--- NOTE | 2019-02-11 04:31 | NUR ---
PATIENT BEEN TURNING HER SELF TONIGHT.
[2019-02-11 06:14] LABS: HEMATOCRIT 35.2 % (37.0-47.0); HEMOGLOBIN 11.7 gm/dL (12.0-15.0); MCH 30.1 pg (26.0-34.0); MCHC 33.1 g/dL (28.0-37.0); RBC 3.87 mil/uL (4.20-5.00); RDW 13.2 % (10.5-14.5); WBC 20.6 thou/uL (4.0-11.0)
[2019-02-11 06:33] LABS: CALCIUM 9.2 mg/dL (8.5-10.1); CREATININE 0.6 mg/dL (0.6-1.0); POTASSIUM 3.9 mmol/L (3.5-5.1)
[2019-02-11 08:20] VITALS: BP 118/71
--- NOTE | 2019-02-11 14:15 | NUR ---
chart review. pt up working with therapy. intro to cm, dcp and team meetings. pt reported " live alone and son or family drive me to appointments. independent, cook and clean. have steps with handrails. have cane"/hannah. will cont following as needed for dc needs.
--- NOTE | 2019-02-11 18:32 | NUR ---
ASSUMED CARE AT APPROX 0715. PATIENT A/O X4. DENIES PAIN. UP X1 ASSIST GB AND JOSE DE JESUS CHAMPION, CGA. VSS. O2 SATS MAINTAINED ON ROOM AIR. PATIENT REPORTS TOLERATING BIPAP AT HS. MED ORDERS CLARIFIED BY NEUROLOGY. FORCED VITAL CAPACITY ORDERED FOR PATIENT PER NEUROLOGY, FIRST TEST COMPLETED THIS AM, RESULTS REPORTED TO DR. PEOPLES, NEUROLOGY. RESULTS < 1500 TO BE CALLED TO NEUROLOGIST. RT CONTACTED, WILL COMPLETE ANOTHER TEST THIS EVENING. FALL PRECAUTIONS IN PLACE. PATIENT CALLS APPROPRIATELY. WILL CONTINUE TO MONITOR.
[2019-02-11 20:20] VITALS: BP 120/67
--- NOTE | 2019-02-12 03:55 | NUR ---
assumed care at approx 1900 evening 02/11. pt alert and oriented x4, appropriate and cooperative. pt assisted with gown change at hs. pt tolerated FVC test with RT reporting result as 1.8 (1800). Pt now wearing cpap machine with pulse oximeter in place with sats within normal range. pt appears to be sleeping soundly with hourly rounding checks. bed alarm on and call light in reach. will continue to monitor.
[2019-02-12 13:11] VITALS: BP 100/63
--- NOTE | 2019-02-12 15:04 | NUR ---
ASSUMED CARES AT 0700. PT AWAKE, ALERT AND ORIENTED*4. DENIES PAIN. VITALS REMAIN STABLE. RT COMPLETED FVC EVERY 8HRS, TIDAL VOLUME REMAINS >1500. IV ON LEFT ARM REMAINS INTACT AND PATENT. PT UP WITH CONTACT GUARD ASSIST, GAITBELT AND WALKER AND TOLERATED WELL. Q1H VISUAL CHECKS. CALL LIGHT WITHIN REACH. FALL PRECAUTIONS IN PLACE
[2019-02-12 19:50] VITALS: BP 133/60
--- NOTE | 2019-02-13 05:32 | NUR ---
PATIENT ALERT AND ORIANTED X4. UP WITH ASSIST TO BATHROOM. DENIES PAIN. SLEPT OFF AND ON DURING NIGHT.
[2019-02-13 11:29] VITALS: BP 106/50
--- NOTE | 2019-02-13 13:16 | NUR ---
ASSUMED CARES AT 0700. PT AWAKE, ALERT AND ORIENTED *4. DENIES PAIN. VITALS REMAIN STABLE. RT CONTINUES TO COMPLETE FVC Q8H, TIDAL VOLUME REMAINS ABOVE 1500. O2 SATS >95% ON RA, LS CLEAR, DENIES SOB. PT UP WITH 1 PERSON MIN ASSIST GAITBELT AND WALKER. Q1H VISUAL CHECKS. CALL LIGHT WITHIN REACH. FALL PRECAUTIONS IN PLACE
[2019-02-13 20:24] VITALS: BP 132/58
--- NOTE | 2019-02-14 04:59 | NUR ---
PATIENT ALERT AND ORIENTED. DENIES PAIN. UP TO BR WITH SBA. SLEPT OFF AND ON DURING NIGHT.
[2019-02-14 09:34] VITALS: BP 122/66
--- NOTE | 2019-02-14 09:46 | NUR ---
ASSUMED CARES AT 0700. PT AWAKE, ALERT AND ORIENTED *4. DENIES PAIN. VITALS REMAINED STABLE. PT CONTINUES TO HAVE FREQUENCY, URINE IS LIGHT-DARK YELLOW, MODERATE AMOUNT, NO FOUL ODOR. PULSES 2+/2+, NO EDEMA. SKIN REMAINS INTACT. PT UP WITH SBA GAITBELT AND WALKER FOR LONG DISTANCES. TOLERATED ALL THERAPY WELL. Q1H VISUAL CHECKS. CALL LIGHT WITHIN REACH. FALL PRECAUTIONS IN PLACE
[2019-02-14 19:30] VITALS: BP 120/59
--- NOTE | 2019-02-15 03:41 | NUR ---
assumed care at approx 1900 evening 02/14. pt sitting up in bed resting and watching tv at change of shift. pt alert and oriented x4, pleasant and cooperative. pt up to bathroom to have bm before hs. pt took hs meds with water tolerating well. pt appears to be sleeping soundly with hourly rounding checks. bed alarm on and call light in reach. will continue to monitor.
[2019-02-15 09:06] VITALS: BP 132/66
--- NOTE | 2019-02-15 13:33 | NUR ---
ASSUMED CARE AT APPROX 0715. PATIENT A/O X4. DENIES PAIN. UP X1 SBA. CALLS APPROPRIATELY. VSS. FVC COMPLETED - RESULTS CALLED TO NEUROLOGIST. ORDERS RECEIVED TO CONTINUE MONITORING TID ORDERED. SATS MAINTAINED ON ROOM AIR, PATIENT REPORTS NO LONGER USING BIPAP NOT ABLE TO TOLERATE. RESTING IN RECLINER. UP TO CHAIR FOR MEALS. ROUNDED ON HOURLY. FALL PRECAUTIONS IN PLACE. WILL CONTINUE TO MONITOR.
[2019-02-15 20:26] VITALS: BP 113/61
--- NOTE | 2019-02-16 04:02 | NUR ---
ASSUMED CARE AT 1900, ASSESSMENT COMPLETED. PT DENIED ANY PAIN, NAUSEA, OR SOB. REPORTS RIGHT ARM WEAKNESS/FATIGUE THAT MAKES IT DIFFICULT TO PULL SHIRT OVER HEAD, BUT OTHERWISE ABLE TO PERFORM ADL'S INDEPENDENTLY WITH SUPERVISION. FALL PRECAUTIONS IN PLACE, CALLS APPROPRIATELY FOR HELP TO TOILET, SLIGHT ROCKING TO GAIT BUT OVERALL STEADY. NO OTHER CONCERNS, WILL CONTINUE TO MONITOR.
--- NOTE | 2019-02-16 07:23 | HC ---
[facility] [place] [address] CONSULTATION Name: ISAI FENTON Room #: 516-1 ADM IN M.R.#: [id number] Admission: 02/10/19 ������������������ Attend Phys: Mega Bui MD Discharge: ������������������ Date of : 43 Report #: [id number] THIS REPORT FOR: //name// CC: Mega Blakenifer Lethaamanda DATE OF SERVICE: 02/15/2019 NEUROBEHAVIORAL STATUS EXAMINATION ATTENDING PHYSICIAN: Mega Bui MD. ENGINE LATHE TENDER: Felipe Parisi, PhD. CLINICAL PRESENTATION: The patient is a 73-year-old female admitted to the rehab unit at [facility] for comprehensive inpatient rehabilitation program to improve functional mobility, activities of daily living and self-care and mental status secondary to an exacerbation of myasthenia gravis. Her assessment also includes dysphagia, acute hypoxic respiratory failure, chronic lymphocytic leukemia, history of breast cancer with right mastectomy. A complete description of her medical condition and history can be found in her medical records. Neuropsychological consultation was requested to provide an assessment of cognitive and emotional status and to provide recommendations and services. The patient was living alone in her home prior to exacerbation of her myasthenia gravis. She is a high school graduate. 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 She has one son and daughter in law, who are planning to move in with her upon discharge. Her family of origin includes ne brother and one sister. She is . She reports having been functioning independently without noticeable deterioration in functioning until 06/2018. Severe weakness and fatigue were noticible during that time. She was eventually diagnosed with myasthenia gravis in 09/2018. She describes her symptoms as having magnified to the extent that she was unable to drive, which was discontinued in 08/2018. TECHNIQUES UTILIZED: Clinical interview, review of medical records, staff consultation and behavioral observation, mini mental status exam 2 standard version, verbal fluency assessment (letter and category), clock drawing and brief abstract reasoning test. EXAMINATION FINDINGS: The patient was alert and cooperative with the assessment. She accurately described events surrounding her admission. There is no evidence of aphasia. Her thoughts are logical and goal oriented. There is no report of auditory or visual hallucinations or suicidal ideation. She [facility] [address] [place] [address] CONSULTATION Name: ISAI FENTON Room #: 516-1 ADM IN ..#: [id number] Admission: 02/10/19 ������������������ Attend Phys: Mega Bui MD Discharge: ������������������ Date of : 43 Report #: [id number] describes her symptoms to include decreased appetite, tiredness and fatigue, difficulty with memory and word finding. She states that she initially experienced anxiety as well as a depressed mood, but as her physical conditions improved, her mood has improved. She has no previous treatment for anxiety or depression or alcohol/drug abuse. Her performance on the MMSE 2 brief version was within normal limits with a raw score of 16/16. She was 3/3 for initial registration, 5/5 for orientation to time, 5/[address] and 3/3 for immediate recall of 3 items after a brief time delay and distraction. Her performance on the MMSE 2 standard version was 27/30, which is within normal limits. She was 3/5 for serial 7s, 2/2 for naming, 1/1 for repetition, 3/3 for comprehension. She could read and a follow single command and write a sentence. The patient had difficulty with copying a simple geometric design. She was able to draw a clock and place the hands at a designated time. Letter fluency was in the average range with a T-score of 46, percentile rank of 34. Category fluency was within the average range with a T-score of 47 and percentile rank of 38. Overall, total fluency is within normal limits with a T-score of 47 and percentile rank 38. Brief abstract reasoning test was 8/8, which is within normal limits. The patient's cognitive functioning appears to be improving. Initial concerns with memory and word finding appeared to have resolved as well as subjective anxiety as long as her condition has improved. DIAGNOSTIC IMPRESSION: Unspecified anxiety disorder. RECOMMENDATIONS: Psychological services as needed to assist in adjustment. Overall, cognitive functioning appears to be returning to within normal limits. Increased anxiety may benefit from the use of relaxation strategies. She reports that her family is planning to live with her and increased environmental support will likely contribute to improved overall functioning and assist in the management of anxiety. Thank you very much for allowing me to provide the consultation on this patient. ��������������������������������������������� <ELECTRONICALLY SIGNED> ���������������������������������������� By: Felipe Parisi, PhD ��������������������������������������������� 02/16/19 0723 1737 [id number] Felipe Parisi, PhD /nt
[2019-02-16 08:00] VITALS: BP 136/58
--- NOTE | 2019-02-16 10:24 | NUR ---
ASSUMED CARE AT APPROX 0715. REFUSED MELATONIN , DIDN'T SLEEP WELL LAST NIGHT. ENCOURAGE PT TO TAKE IT TONIGHT. PATIENT A/O X4. ABLE TO VOICE HER NEEDS. DENIES PAIN. UP X1 SBA. CALLS APPROPRIATELY. VSS. FVC 1.4 THIS AM. SATS MAINTAINED ON ROOM AIR, PATIENT REPORTS NO LONGER USING BIPAP NOT ABLE TO TOLERATE. OT GAVE PT SHOWER THIS AM. FEELS GOOD BUT TIRED. RESTING IN RECLINER AT THIS MOMENT. UP TO CHAIR FOR MEALS. ROUNDED ON HOURLY. FALL PRECAUTIONS IN PLACE. WILL CONTINUE TO MONITOR.
[2019-02-16 19:35] VITALS: BP 115/66
--- NOTE | 2019-02-17 03:56 | NUR ---
Assumed pt care at 1900. Pt A/OX4.VSS.Denied pain on assessment.Up with contact guard assist/GB to the BR without problems. Medicated with Melatonin at HS been resting.RT contacted @0030 regarding doing VC at HS stated they got caught and weren't able to do it then will do in am as pt was trying to get some sleep. Fall precautions in place,pt calls approp will continue to monitor pt.
[2019-02-17 07:30] VITALS: BP 107/57
--- NOTE | 2019-02-17 12:35 | NUR ---
team meeting, recommendation : dc 02/23/19 with [facility] ( nursing , pt, ot, st ), will need 4ww for mobility
--- NOTE | 2019-02-17 13:15 | NUR ---
ASSUMED CARE AT APPROX 0715. REPORT SLEPT BETTER LAST NIGHT AFTER SHE TOOK MELATONIN. PT HAS BRIGHT AFFECT AND IN GOOD SPIRIT. PARTICIPATES WELL WITH THERAPY. DENIES PAIN. UP X1 SBA. CALLS APPROPRIATELY. VSS ON RA. FVC 1.6 THIS AM. SATS MAINTAINED ON ROOM AIR. WALKED TO DINNNING ROOM FOR BREAKFAST AND LUNCH. APPETITE GOOD. RECLINER AT THIS MOMENT.ROUNDED ON HOURLY. FALL PRECAUTIONS IN PLACE. WILL CONTINUE TO MONITOR. TEAM CONFERENCE TODAY WILL BE DISCHARGED NEXT SATURDAY.
[2019-02-17 16:15] VITALS: BP 107/57
[2019-02-17 19:25] VITALS: BP 117/63
--- NOTE | 2019-02-18 01:39 | NUR ---
assumed care at approx 1900 evening 02/17. pt sitting up at change of shift resting and watching tv. pt alert and oriented x4, appropriate and cooperative. pt stated she felt she was making progress in her rehab goals. pt took hs meds with water tolerating well. pt appears to be sleeping soundly with hourly rounding checks. bed alarm on and call light in reach. will continue to monitor.
[2019-02-18 08:41] VITALS: BP 103/54
--- NOTE | 2019-02-18 16:12 | NUR ---
ASSUMED CARE AT APPROX 0715. PATIENT A/O X4. DENIES PAIN. VSS. MEDS ADMINISTERED PER ORDER. UP X1 ASSIST GB AND ROLLATOR WALKER. PARTICIPATING IN THERAPY. ROUNDED ON HOURLY. FALL PRECAUTIONS IN PLACE. UP IN RECLINER. CALL LIGHT IN REACH, PATIENT CALLS APPROPRIATELY. WILL CONTINUE TO MONITOR.
--- NOTE | 2019-02-18 16:21 | NUR ---
Patient participated in community reintegration on 02/18/19 with OT. Refer to documentation by OT.
[2019-02-18 19:55] VITALS: BP 112/64
--- NOTE | 2019-02-18 22:10 | NUR ---
ASSUMED CARE OF PT AT 0715. PT IS A&OX4. IS ON ROOM AIR. HAS CPAP IN ROOM, BUT REFUSED TO WEAR IT TONIGHT. PT STATED, "I HAVEN'T BEEN WEARING THAT THING FOR A FEW NIGHTS". IS UP WITH 1 ASSIST, GB, WALKER TO BATHROOM. DENIES PAIN. FALL PRECAUTIONS & HOURLY ROUNDING CONTINUED THIS SHIFT. LABS & VITALS REVIEWED. PT IS CURRENTLY IN BED RESTING. CALL LIGHT WITHIN REACH. WILL CONTINUE TO MONITOR.
[2019-02-19 07:52] VITALS: BP 112/63
--- NOTE | 2019-02-19 11:25 | NUR ---
Nutrition: pt admitted to rehab unit with myasthenia gravis exacerbation, dysphagia. Seen for LOS. Familiar with pt from acute stay. Intake is very good, 100% most meals and likes to drink Ensure clear once daily. Limits soy containing foods due to hx breast CA. Mechanically altered ground diet, followed by ST. Weights 125# on acute. Last 2 wts on rehab, 117 and 133#. Request re-weigh for accuracy. Place as low risk.
--- NOTE | 2019-02-19 16:23 | NUR ---
ASSUMED CARE AT APPROX 0175. PATIENT A/O X4. DENIES PAIN. VSS. FVC LEVEL >1.5L. PATIENT UP X1 ASSIST. CALLS APPROPRIATELY. USES ROLLATOR WALKER WHEN COMING OUT TO DINING ROOM. OUT TO DINING ROOM FOR LUNCH AND DINNER. PARTICIPATING IN THERAPY. FALL PRECUATIONS IN PLACE. TENATIVE D/C SATURDAY. CALL LIGHT WITHIN REACH. WILL CONTINUE TO MONITOR.
[2019-02-19 19:05] VITALS: BP 110/53
--- NOTE | 2019-02-20 06:34 | NUR ---
ASSESSMENT: PT REMAIN ALERT AND ORIENT TIMES FOUR. UP TO BR FREQUENTLY FOR URGENCY. UP WITH GB AND SBA. STEADY GAIT, PACE FAST. DENIES PAIN, SOB AND N/V. RFUSED BIPAP. FORCED VITAL COMPACITY 1.47...ROUNDED UP TO 1.5 TOLERATING PO INTAKE. GOOD PROGRESS TOWARDS DC GOALS, WILL CONTINUE TO MONITOR.
[2019-02-20 07:49] VITALS: BP 121/77
--- NOTE | 2019-02-20 08:42 | NUR ---
ASSUME PT CARE AT 0700. VSS ON RA. REPORTS SLEPT GOOD BUT GOT UP FREQUENTLY FOR BATHROOM. DENIES PAIN. VC THIS AM IS 1.4 WHEN PT IN BED. WILL REPEAT FOR ACCURATE VC LATER. OFFERED SUPPORTIVE CARE. ENCOURAGED PT TO VOICE HER NEED. PT UP IN RECLINER EATING BREAKFAST. HER GOAL IS TO CONTINUE TO WORK WITH THERAPY. PT REQUESTS IF SHE CAN BE M.I IN ROOM WITH A WALKER FOR BATHROOM PRIVILEGE SINCE PT HAS AN URGENCY. WILL DISCUSS WITH PT. PT HAS LITTLE CONSTIPATION BUT WANTS TO TAKE COLACE LATER TO AVOID MAKING ACCIDENT. FALL PRECAUTION IN PLACE. CALL LIGHT WITHIN REACH. WILL CONTINUE TO MONITOR.
[2019-02-20 18:05] VITALS: BP 128/72
[2019-02-20 19:48] VITALS: BP 127/71
--- NOTE | 2019-02-21 03:37 | NUR ---
ASSUMED CARES AT 1900. PT AWAKE, A/O*4. DENIES PAIN. VITALS REMAIN STABLE. FORCED VITAL CAPACITY AT 1.3, LOW VALUES NOTED TODAY AND NEUROLOGIST AWARE. O2 SATS >95% ON RA, PT DENIES SOB OR DIFFICULTY SWALLOWING. PILLS TAKEN WHOLE, ONE AT A TIME WITH WATER AND TOLERATED WELL. CPAP WORN AT NIGHT TOLERATED. PT REMAINS MODIFIED INDEPENDENT IN ROOM. Q1H VISUAL CHECKS. CALL LIGHT WITHIN REACH. HALLWAYS CLEAR OF CLUTTER.
[2019-02-21 05:47] LABS: CALCIUM 9.2 mg/dL (8.5-10.1); CREATININE 0.7 mg/dL (0.6-1.0); POTASSIUM 4.1 mmol/L (3.5-5.1)
[2019-02-21 05:54] LABS: HEMATOCRIT 38.2 % (37.0-47.0); HEMOGLOBIN 12.5 gm/dL (12.0-15.0); MCH 29.9 pg (26.0-34.0); MCHC 32.8 g/dL (28.0-37.0); MCV 91.1 fL (80.0-100.0); PLATELET COUNT 204 thou/uL (150-400); RBC 4.19 mil/uL (4.20-5.00); RDW 13.2 % (10.5-14.5); WBC 21.5 thou/uL (4.0-11.0)
[2019-02-21 06:30] LABS: ABSOLUTE NEUTROPHILS 6.5 thou/uL (1.4-8.2); ATYPICAL LYMPHS 1 %
[2019-02-21 08:00] VITALS: BP 124/69
--- NOTE | 2019-02-21 09:37 | NUR ---
ASSUMED CARE AT 0700. PATIENT IS ALERT AND ORIENTED X4. PATIENT BAHENA'S, RETAIL DEPARTMENT MANAGER ARE EQUAL. LUNGS ARE CLEAR. PATIENT TV 1.29 PATIENT ENCOURAGED TO DO I.S. THROUGHOUT THE DAY AND WHILE WATCHING T.V. PATIENT CONTINUES ON RESPIRATORY TXS. ABD IS SOFT WITH BSX4. PATIENT HAD BM THIS A.M. PATIENT IS MOD/I IN THE ROOM. PATIENT IS UP WITH GAIT BELT AND OUT TO THE DINING ROOM WITH ASSIST OF 1 STAFF FOR MEALS. FALL AND SAFETY PROTOCOLS IN PLACE. DENIES ANY PAIN AT THIS TIME. WILL CONTINUE TO MONITER.
[2019-02-21 19:30] VITALS: BP 129/67
--- NOTE | 2019-02-22 00:46 | NUR ---
PT ASSESSMENT COMPLETED AND VSS. MEDS GIVEN ORDERED AND WELL TOLERATED. MOD I IN ROOM. STEADY. SLEEPING WELL. WILL CONTINUE TO MONITOR FRQUENTLY.
[2019-02-22 08:33] VITALS: BP 125/78
[2019-02-22 08:35] VITALS: BP 125/78
--- NOTE | 2019-02-22 20:20 | NUR ---
ASSUMED CARE AT APPROX 0715. PATIENT A/O X4. MOD I IN ROOM. VSS. DENIES PAIN. MEDS GIVEN PER ORDERS. STOOLS MONITORED- ONE BM THIS SHIFT, FORMED. PATIENT DENIES NAUSEA/VOMITING/DIARRHEA OR GI UPSET. PLAN IS FOR D/C TOMORROW. PATIENT PROVIDED WITH MED INFO SHEETS FOR MEDICATIONS CURRENTLY PRESCRIBED, INCLUDING HOME MEDS PER PATIENT REQUEST. WALKWAY CLEAR OF OBSTACLES. PATIENT CALLS FOR ASSITANCE APPROPRIATELY. RESTING IN RECLINER AT CHANGE OF SHIFT, FAMILY AT BEDSIDE.
[2019-02-22 20:44] VITALS: BP 130/64
--- NOTE | 2019-02-23 05:01 | NUR ---
PT ASSESSMENT COMPLETED AND VSS. MEDS GIVEN ORDERED AND WELL TOLERATED. UP TO THE BATHROOM. STEADY. PHUONG I IN ROOM. PT COMPLAINT OF FEELING MORE SOA WHEN WALKING TO THE BATHROOM OVER THE PAST 24 HOURS. ALSO THAT IT IS TAKING HER A LITTLE LONGER TO RECOVER. SAT REMAINS WNL ON RA. CONTACTED KEDAR STEINBERG AND DR MOON REGARDING THE CONCERN. ALSO, PTs VITAL CAPACITY WAS 1.8 2 DAYS AGO AND YESTERDAY DURING THE 3 CHECKS IT WAS 1.2, 1.4, AND 1.3 AT HS. INFORMED. PER ORDERS STAFF SHOULD CONTACTED DR MOON IN THE AM IF PT IS STILL HAVING THE SOA OR IF VITAL CAPACITY IS LESS THEN 1.5. PLAN IS FOR PT TO D/C TODAY/SATURDAY. PT SLEEPING WELL AT THIS TIME. WILL CONTINUE TO MONITOR FREQUENTLY.
[2019-02-23 08:15] VITALS: BP 118/59
[2019-02-23] MEDS ORDERED: MESTINON180 MG PO (09:57)
[2019-02-23] MEDS ORDERED: PEPCID20 MG PO (09:57)
[2019-02-23] MEDS ORDERED: ARIMIDEX PO (09:57)
--- NOTE | 2019-02-23 10:23 | NUR ---
ASSUMED CARES AT 0700. PT AWAKE, ALERT AND ORIENTED*4. DENIES PAIN. FVC THIS AM 1.6, PT DENIES SOB. LS CLEAR, O2 SATS > 95% ON RA. ALL VITALS REMAIN STABLE. SKIN REMAINS INTACT. NO EDEMA NOTED. PT REMAINS MOD INDEPENDENT IN ROOM AND TOLERATED WELL. DC INSTRUCTIONS AND EDUCATION TO BE COMPLETED BEFORE DC. Q1H VISUAL CHECKS. CALL LIGHT WITHIN REACH. FALL PRECAUTIONS IN PLACE
[2019-02-23 10:32] VITALS: BP 107/57
--- NOTE | 2019-02-23 10:34 | NUR ---
PT DISCHARGING TODAY TO HOME WITH [facility] NOTIFIED JOJO IN INTAKE OF DC AND SHE WILL NOTIFY PT TIME OF VISITS.
[2019-02-23] MEDS ORDERED: MESTINON60 MG/5 ML PO ×2 (13:55→14:07)
[2019-02-23] MEDS ORDERED: PREDNISONE 10 M10 MG PO (14:07)
== END 2019-02-23 14:32 | disposition home health service (06) | DRG 56 ==
LOC: ENTRNSPT 02-23 14:20 → EDTRNSPTSTS 02-23 14:31
PROVIDERS: Nurse Practitioner; ADMIT Physical Medicine & Rehabilitation
DX: G70.01 Myasthenia gravis with (acute) exacerbation (principal); J96.01 Acute respiratory failure with hypoxia; C91.10 Chronic lymphocytic leukemia of B-cell type not having achieved remission; F41.9 Anxiety disorder, unspecified; R13.10 Dysphagia, unspecified; Z85.3 Personal history of malignant neoplasm of breast; Z90.11 Acquired absence of right breast and nipple; Z88.8 Allergy status to other drugs, medicaments and biological substances; Z79.899 Other long term (current) drug therapy
CPT/HCPCS: 10112

== ENCOUNTER 2019-05-07 14:11 | Inpatient (IN) | payer OTHER ==
[~2019-05-07] VITALS: Ht 160 cm; Wt 56.7 kg
--- NOTE | ~2019-05-07 | HC ---
[facility] [place] [address] CONSULTATION Name: ISAI FENTON Room #: 240-[facility] IN M.R.#: [id number] Admission: 05/07/19 Attend Phys: Arturo Mccann Discharge: 05/22/19 Date of : 41 Report #: [id number] THIS REPORT FOR: //name// CC: TELMA physician/PCP Arturo Mccann DATE OF SERVICE: 05/20/2019 HISTORY OF PRESENT ILLNESS: The patient is a 73-year-old white female previously known to me, who was admitted with worsening weakness, increasing shortness of breath, onset of diplopia. She was noted to have acute respiratory failure. She was diagnosed with an MS exacerbation. She had acute hypercapnic hypoxemic respiratory failure, was mechanically ventilated from 05/10/2019 until she was extubated after the fifth plasmapheresis yesterday. She was thought to have probable nosocomial pneumonia. Neurology is involved with her myasthenia with the plasmapheresis, Mestinon and CellCept. She is very weak and debilitated. Continues in the ICU, being monitored. We are seeing her in Rehabilitation Medicine consultation. PAST MEDICAL HISTORY: Includes CLL and breast CA, followed by Oncology. She has had a prior right mastectomy. Her myasthenia was originally diagnosed in 10/15/2018. She also has a history of hyperlipidemia. MEDICATIONS: Please see the full medication listing. ALLERGIES: No known drug allergies. The patient does not have Benadryl. HABITS: No history of tobacco or alcohol abuse. SOCIAL HISTORY: The patient lives in a 2-nyla house alone, 1 step in, 14 inside and used a cane or walker. There is a son that lives nearby and a brother and [id number] are involved. REVIEW OF SYSTEMS: Did not offer any current complaints of chest pain, shortness of breath or abdominal discomfort. PHYSICAL EXAMINATION: GENERAL: A 73-year-old white female, in no obvious distress. The patient is alert. VITAL SIGNS: Last recorded temperature 97.1, pulse 65, respirations 16, blood pressure 142/64. HEENT: Appeared to be benign. EXTREMITIES: She has functional range of motion of both upper extremities. Strength is a grade 3+/5. Lower extremities; functional range of motion, [facility] [address] [place] [address] CONSULTATION Name: ISAI FENTON Room #: [facility] IN ..#: [id number] Admission: 05/07/19 Attend Phys: Arturo Mccann Discharge: 05/22/19 Date of : 41 Report #: [id number] strength is grade 3+/5. She needs max assist for lower extremity dressing. She is very weak with basic bed mobility, needing max assist. Decreased sitting balance. ASSESSMENT: A 73-year-old white female with the following problem list: 1. Severe myasthenia gravis exacerbation. 2. Acute hypercapnic hypoxemic respiratory failure with prolonged mechanical ventilation. 3. Status post plasmapheresis. 4. Probable nosocomial pneumonia. 5. Hypernatremia. 6. Prior history of breast cancer with mastectomy. 7. History of chronic lymphocytic leukemia. PLAN: We are evaluating her therapy tolerance for an acute [address] [place] [address] inpatient rehabilitation stay. We will be glad to follow along with you. By: 1225 [id number] Mega Bui MD /PMT
[~2019-05-07 14:11] MED LIST changes: +ARIMIDEX PO; +MESTINON180 MG PO; +MESTINON60 MG/5 ML PO; +PEPCID20 MG PO; +PREDNISONE 10 M10 MG PO
[2019-05-07 14:40] LABS: ABSOLUTE NEUTROPHILS 4.2 thou/uL (1.4-8.2); BASOPHILS 0.6 % (0.0-2.0); EOSINOPHILS 0.4 % (0.0-3.0); HEMOGLOBIN 14.8 gm/dL (12.0-15.0); LYMPHOCYTES 48.7 % (24.0-44.0); MCH 29.6 pg (26.0-34.0); MCHC 32.9 g/dL (28.0-37.0); MONOCYTES 6.8 % (1.0-8.0); PLATELET COUNT 185 thou/uL (150-400); POLYS 43.5 % (36.0-66.0); RBC 4.99 mil/uL (4.20-5.00); RDW 12.9 % (10.5-14.5); WBC 9.7 thou/uL (4.0-11.0)
[2019-05-07 14:53] LABS: ANION GAP 7 mmol/L (7-16); BUN 16 mg/dL (7-18); CALCIUM 10.4 mg/dL (8.5-10.1); CHLORIDE 102 mmol/L (98-107); CO2 31 mmol/L (21-32); CREATININE 1.1 mg/dL (0.6-1.0); GLUCOSE 109 mg/dL (74-106); POTASSIUM 4.2 mmol/L (3.5-5.1); SODIUM 140 mmol/L (136-145)
[2019-05-07 14:54] LABS: APTT 26.2 Seconds (24.5-32.8); PROTIME 10.3 Seconds (9.3-11.4)
[2019-05-07 15:03] LABS: ALBUMIN 3.9 g/dL (3.4-5.0); MAGNESIUM 2.1 mg/dL (1.8-2.4); SGOT 14 U/L (15-37); SGPT 13 U/L (30-65); TOTAL BILIRUBIN 0.7 mg/dL (<0.1-1.0); TOTAL PROTEIN 8.2 g/dL (6.4-8.2); TROPONIN-I <0.06 ng/mL (<0.06)
[2019-05-07 15:03] LABS: BE(vivo) 1.2 mmol/L (-2 to +3); HCO3 25.7 mmol/L (22.0-26.0); PCO2 40.5 mmHg (35.0-45.0); PO2 69.3 mmHg (80.0-100.0); pH 7.421 (7.360-7.450); sO2 94.2 % (92.0-98.0)
[2019-05-07 16:22] VITALS: BP 125/68
[2019-05-07 16:44] LABS: TSH 2.002 uIU/mL (0.358-3.740)
[2019-05-07 16:54] VITALS: BP 125/88
--- NOTE | 2019-05-07 17:09 | EKG ---
[facility] [address] [place] [address] ELECTROCARDIOGRAM REPORT Name: JOSSYISAI ROB [id number] Admission: 05/07/19 Attend Phys: Discharge: Date of : 41 Report #: [id number] THIS REPORT FOR: //name// [facility] ED Test Date: 2019-05-07 Test Time: 14:45:46 Pat Name: ISAI FENTON Department: Room: Gender: F Petroleum Refining Equipment Operator: [email or web address] : [id number] Requested By: Deion Carver Order Number: [id number] MD: Vidal Womack Measurements Intervals [place] Rate: 72 P: 62 MA: 155 QRS: 40 QRSD: 87 T: 67 QT: 361 QTc: 396 Interpretive Statements Sinus rhythm Normal tracing Compared to ECG 01/29/2019 20:46:19 No significant changes Electronically Signed On 05-07-2019 17:08:45 CDT by Vidal Womack [email or web address] <ELECTRONICALLY SIGNED> By: Vidal Womack MD, [facility] 05/07/19 1708 1445 1445 Vidal Womack MD, FACC /EPI
[2019-05-07 17:34] VITALS: BP 115/64
--- NOTE | 2019-05-07 19:28 | NUR ---
73 YO FEMALE ADMITTED TO 418 FROM ED. A&OX4, AMBULATES WITH STAND BY ASSIST X1 AND CANE. IV INTACT IN L FA. STATES SHE DOES HAVE DOUBLE VISION. NPO AT THIS TIME. ORIENTED PT TO ROOM/CALL LIGHT.
[2019-05-07 20:44] VITALS: BP 135/81
[2019-05-08 00:20] VITALS: BP 165/96
[2019-05-08 03:50] VITALS: BP 107/65
--- NOTE | 2019-05-08 03:59 | NUR ---
PATIENT ALERT AND ORIENTED X4. UP WITH ASSIST. SLEPT OFF AND ON DURING NIGHT. HAD TOTAL VITAL CAPACITY DONE X3 BY RT AND THEN GOT UP TO BATHROOM. ALMOST PAST OUT. O2 HELPED BACK TO BED, O2 INCREASED TO 3L. TVC WAS 1.75. ACCUCHECK WAS 107, NO INSUIN COVERAGE REQUIRED. NPO BUT ORDER RECEIVED THAT PO MEDS MAY BE TAKEN BY MOUTH WITH A SIP OF WATER. DENIES PAIN.
[2019-05-08 07:45] VITALS: BP 109/67
--- NOTE | 2019-05-08 14:05 | NUR ---
PT ADMITTED RELATED TO MYESTHENIA GRAVIS. CM REVIEWED CHART AND SPOKE WITH CARE TEAM. CM MET WITH PT AT BEDSIDE THIS DAY. PT IS A&O X4. CM ROLE INTRODUCED. PT INDICATED SHE LIVES IN A HOUSE ALONE WITH 1 STEP TO ENTER AND 1 STEP INSIDE. PT INDICATED SHE USES A CANE IN THE COMMUNITY BUT ALSO HAD A 4WW. PT INDICATED SHE HAD BEEN INDEPENDENT WITH ADLS CVT RN BUT THAT HER SON, BROTHER, AND SISTER AND LAW ASSIST WITH GROCERY SHOPPING. SHE INDICATED SHE HAD BEEN ON SERVICE WITH [facility] IN THE PAST. HER PCP IS DR. RYAN DAVIS. PT INDICATED SHE PLANS TO RETURN HOME ONCE MEDICALLY STABLE. CM TO FOLLOW INDICATED WITH DC PLANNING.
[2019-05-08 16:20] VITALS: BP 128/68
[2019-05-08 19:21] VITALS: BP 162/81
[2019-05-08 20:19] VITALS: BP 143/79
[2019-05-09] VITALS (10 sets, daily range): BP systolic 111–168; BP diastolic 64–101
--- NOTE | 2019-05-09 01:52 | NUR ---
IMMUNOGLOBULIN STARTED AT 0120. BLOOD PRESSURES DONE PRIOR TO INFUSION AND WITH IN 30 MINUTES OF INITIATION OF THE MEDICATION. PT STATED THAT SHE HAS HAD THIS BEFORE, SOMETIME IN JANUARY. RESTING QUIETLY AT THIS TIME.
--- NOTE | 2019-05-09 01:54 | NUR ---
TRANSFERED TO [address] [place] [address] THIS SHIFT FROM [facility]. SHE HAS BEEN HAVING INCREASED SYMPTOMS OF HER MG. SHE HAS DOUBLE VISION, WHICH IS CONSTANT TONIGHT. SHE STATED THAT IT HAD BEEN COMING ON FOR ABOUT 2 WEEKS , BUT IT HAS BEEN GETTING MORE PRONOUNCED AND MORE OFTEN EACH DAY. SHE IS COOPERATIVE AND SHE ASKS PERTINENT QUESTIONS ABOUT HER CARE AND MEDICATIONS.
--- NOTE | 2019-05-09 03:02 | NUR ---
CONTINUEING TO INCREASE THE IMMUNOGLOBULIN I DO HER VITALS. SHE IS TOLERATING THIS. WITH BLOOD PRESSURE THAT ARE WNL'S.
--- NOTE | 2019-05-09 06:25 | NUR ---
UNABLE TO SUCCESSFULLY GAIN IV ACCESS. I LEFT A MESSAGE FOR IV TEAM.
--- NOTE | 2019-05-09 19:37 | NUR ---
pt is A&OX3, PT's vs and o2sat are stable , pt denies pain and sob , RN has called Dr to report dr about pt has difficult time to swallow, no new order at this time, RN has reported to next shift to keep eye on pt.
[2019-05-10] VITALS (28 sets, daily range): BP systolic 74–225; BP diastolic 26–97
--- NOTE | 2019-05-10 05:00 | NUR ---
Patient making slow progress towards outcome goals. Markd difficulty swallowing, almost choked on Tylenol pre med IGG infusion. Patient anxious c/o difficulty breathing on room air, sat only 90% placed on 2L/NC sat upper 90's. Oral suctioning to clear throat. All other oral meds held. IVFluids started for hydration. High fall risks, calls out appropriately for meeds, fall precautions in place.
[2019-05-10 09:50] LABS: HEMATOCRIT 42.9 % (37.0-47.0); HEMOGLOBIN 13.9 gm/dL (12.0-15.0); MCH 29.6 pg (26.0-34.0); MCHC 32.3 g/dL (28.0-37.0); MCV 91.5 fL (80.0-100.0); PLATELET COUNT 226 thou/uL (150-400); RBC 4.69 mil/uL (4.20-5.00); RDW 12.7 % (10.5-14.5); WBC 21.3 thou/uL (4.0-11.0)
[2019-05-10 09:59] LABS: BE(vivo) -0.8 mmol/L (-2 to +3); PCO2 91.6 mmHg (35.0-45.0); PO2 104.3 mmHg (80.0-100.0); pH 7.148 (7.360-7.450); sO2 95.7 % (92.0-98.0)
[2019-05-10 10:04] LABS: ALBUMIN 3.5 g/dL (3.4-5.0); CALCIUM 8.9 mg/dL (8.5-10.1); CREATININE 0.6 mg/dL (0.6-1.0); MAGNESIUM 1.8 mg/dL (1.8-2.4); POTASSIUM 3.9 mmol/L (3.5-5.1); TOTAL BILIRUBIN 0.4 mg/dL (<0.1-1.0); TOTAL PROTEIN 8.8 g/dL (6.4-8.2)
[2019-05-10 10:16] LABS: ABSOLUTE NEUTROPHILS 17.9 thou/uL (1.4-8.2); PLATELET ESTIMATE NORMAL
--- NOTE | 2019-05-10 12:37 | NUR ---
VAT CONSULTED FOR A PICC FOR THIS PT WHO IS INTUBATED AND HAS SEVERE HYPOTENSION WITH MG FLARE. A 5FRTLPICC PLACED LUABRACHIAL. CXR REVEALS TIP AT [facility], PLEASE SEE INSERTION DOC FOR DETAILS
--- NOTE | 2019-05-10 13:05 | NUR ---
pt is A&O X3, pt is o2 3L/MIN/NC to keep o2sat 94-96%, but pt still feel SOB and pt's breathing is shallow about 09am, RN has called dr to report : pt has difficilt time swallow food and water, pt's BP is high 170-180/90-100 mmhg, pt has SOB, breathing is weak and shallow,new order Lab ABG, CBC AND CMB STAT, results show avute decompensation, acidosis and hypercapnea, DR came to assess the pt and tell pt and family, pt needs to go to ICU for intubation and ventilator to help pt's breathing, pt and family agree with intubation, so pt was transfered to ICU about 1010am.RN has giving bedsid report at ICU.
[2019-05-10 13:11] LABS: BE(vivo) 3.2 mmol/L (-2 to +3); HCO3 25.6 mmol/L (22.0-26.0); PCO2 31.8 mmHg (35.0-45.0); pH 7.523 (7.360-7.450); sO2 97.6 % (92.0-98.0)
--- NOTE | 2019-05-10 18:11 | NUR ---
ASSESMENTS AND INTERVENTIONS DOCCUMENTED. PATIENT TRANSFERED TO ICU FROM THE FLOOR. PATIENT PRESENTING WITH PARALYSIS RELATED TO MYASTHENIA GRAVIS. PATIENT INTUBATED AT BED SIDE BY DOCTOR SOWMYA. PATIENT TOLERATING WELL. PATIENT DENYING PAIN. ARTERIAL LINE PLACED BY DR. MOON WELL DIALYSIS CATHERTER FOR PLASMAPHERESIS. BIGGS AND OG TUBE PLACED BY NURSE PER DR. MONTERO. RADIOLOGY PAGED TO VERIFY PLACEMENT OF LINES. BLOOD DONOR REPORTED TO BED SIDE AND INTIATED PLASMAPHERISIS. FAMILY EDUCATED ON THE PLAN OF CARE AND MEDICATIONS FOR THE PATIENT. PATIENT TOLERATED PLASMAPHERESIS WELL. PATIENT IS RESTING QUIETLY AT THIS TIME. THE PLAN OF CARE IS TO CONTINUE TO MONITOR, CONTROL PAIN AND HAVE PLASMAPHERISIS.
[2019-05-11 03:54] VITALS: BP 147/58
--- NOTE | 2019-05-11 04:10 | NUR ---
VERSED 2 MG IV PER ORDER DR MOON FOR SEDATION.
[2019-05-11 04:13] LABS: BE(vivo) 1.2 mmol/L (-2 to +3); HCO3 23.6 mmol/L (22.0-26.0); PO2 133.3 mmHg (80.0-100.0); sO2 98.9 % (92.0-98.0)
--- NOTE | 2019-05-11 06:00 | NUR ---
REMAINS INTUBATED AND SEDATED WITH FENTANYL 50 MCG AND PROPOFOL GTT 25 MCG SINUS MARY RATE [address] MOON NOTIFIED AND AWARE PT AROUSES EASILY OPENS EYES TO NAME AND BAHENA EQUAL CEMETERY WARDEN. SBP 130 TO 140 800 CC UO THIS SHIFT. WILL CONT TO MONITOR CLOSELY.
[2019-05-11 06:32] LABS: HEMATOCRIT 34.6 % (37.0-47.0); MCHC 33.4 g/dL (28.0-37.0); MCV 89.8 fL (80.0-100.0); RBC 3.85 mil/uL (4.20-5.00); RDW 12.7 % (10.5-14.5); WBC 9.4 thou/uL (4.0-11.0)
[2019-05-11 06:37] LABS: HEMOGLOBIN 11.6 gm/dL (12.0-15.0)
--- NOTE | 2019-05-11 07:00 | NUR ---
PT AWAKE AND ALERT. LOOKS SO MUCH BETTER THIS AM. REMAINS SINUIS MARY.
[2019-05-11 07:13] LABS: CALCIUM 8.5 mg/dL (8.5-10.1); CREATININE 0.5 mg/dL (0.6-1.0); POTASSIUM 3.7 mmol/L (3.5-5.1)
--- NOTE | 2019-05-11 18:42 | NUR ---
Pt sedated on diprivan and fentanyl. Pt's HR in low 30's. BP stable. Pt following commands. Plan for plasmapheresis tomorrow. Pt pogressing towards goals.
--- NOTE | 2019-05-12 03:16 | NUR ---
ASSUMED CARE OF PATIENT AT 1900. VSS, HEART RATE REMAINS IN THE 40'S. PATIENT AWAKE, FOLLOWS COMMANDS, DENIES PAIN. FENTYNAL GTT TITRATED ACCORDINGLY. TURNED Q2, ORAL CARE GIVEN. PROGRESSING SLOWLY POC GOALS.
[2019-05-12 05:46] LABS: CALCIUM 8.4 mg/dL (8.5-10.1); CREATININE 0.4 mg/dL (0.6-1.0); POTASSIUM 3.6 mmol/L (3.5-5.1)
[2019-05-12 07:54] VITALS: BP 158/75
[2019-05-12 12:56] LABS: HEMATOCRIT 40.2 % (37.0-47.0); HEMOGLOBIN 13.2 gm/dL (12.0-15.0); MCH 29.2 pg (26.0-34.0); MCHC 32.8 g/dL (28.0-37.0); MCV 88.9 fL (80.0-100.0); RBC 4.52 mil/uL (4.20-5.00); RDW 12.5 % (10.5-14.5); WBC 13.3 thou/uL (4.0-11.0)
--- NOTE | 2019-05-12 13:55 | NUR ---
PT HYPERTENSIVE (SYSTOLIC 180'S). CALLED DR GARCIA.HYDRALAZINE 10 MG PRN ORDER GIVEN. PT GIVEN HYDRALAZINE AT 12:30. PT'S HR INCREASED TO 120'S AND SYSTOLIC BP TO 200'S. PT HAD REVERSE REACTION TO HYDRALAZINE PER PHARMACY. DR GARCIA NOTIFIED. PT WAS STABILIZED WITH INCREASE IN FENTANYL TITRATION TO 50 MCG AND PROPOFOL TO 30 MCG. CLONIDINE 0.1 MG PER OG TUBE ORDER GIVEN BY DR. GARCIA. CLONIDINE 0.1MG PER TUBE GIVEN TO PT AT 1315. PT STABLE AT THIS MOMENT WITH HR 67 AND BP 134/51(78).
--- NOTE | 2019-05-12 15:51 | NUR ---
FOLLOWING FOR DC PLANNING. CLINICAL INFO REVIEWED. TRANSFERRED TO ICU ON 05/10/19 AND INTUBATED. PLASMA PHERESIS QOD X 5 TREATMENTS ORDERED AND TODAY IS TREATMENT #2. POSSIBLE PLAN TO EXTUBATE AFTER PHERESIS PER PULM. PT ADMIT FROM HOME WAS ADMITTED IN JANUARY 2019 AND THEN TRANSITIONED TO 5N ACUTE REHAB. WILL FOLLOW TO ASSIST WITH COORDINATION OF DC NEEDS. WILL NEED THERAPY EVALS WHEN APPROPRIATE.
--- NOTE | 2019-05-12 17:30 | NUR ---
DR. KIMBALL INFORMED THAT PT WAS GIVEN A 500CC BOLUS NS FOR LOW BP
--- NOTE | 2019-05-12 19:07 | NUR ---
PT NOT MOVING TOWARDS GOAL. UNABLE TO CPAP TODAY DUE TO LABILE HR AND BP. 500 CC BOLUS GIVEN FOR LOW BP WITH GOOD RESULTS.
[2019-05-13] VITALS (11 sets, daily range): BP systolic 105–183; BP diastolic 48–72
--- NOTE | 2019-05-13 02:58 | NUR ---
ASSUMED CARE OF PATIEN AT 1900. VSS, AFEBRILE. DENIES PAIN, FOLLOWS COMMANDS. SEEMS MORE LETHARGIC, BUT STILL RESPONSIVE. TURNED Q2, BATH GIVEN. BROTHER CALLED, UPDATED ON POC. ANTICIPATING CPAP TRIAL TODAY. WORKING TOWARDS POC GOALS.
[2019-05-13 05:52] LABS: CALCIUM 8.2 mg/dL (8.5-10.1); CREATININE 0.4 mg/dL (0.6-1.0); POTASSIUM 3.5 mmol/L (3.5-5.1)
[2019-05-13 14:58] LABS: BE(vivo) -1.4 mmol/L (-2 to +3); HCO3 22.8 mmol/L (22.0-26.0); PCO2 36.9 mmHg (35.0-45.0); PO2 72.4 mmHg (80.0-100.0); pH 7.409 (7.360-7.450); sO2 94.8 % (92.0-98.0)
--- NOTE | 2019-05-13 17:39 | NUR ---
INTERVENTIONS AND ASSESSMENTS DOCCUMENTED. PATIENT FOLLOWING COMMADS. FAMILY AND PATIENT EDUCATED ON PLAN OF CARE. PATIENT REMAINS INTUBATED AND SEDATED. WEANING TRIALS DELAYED RELATED TO ABSENCE OF GAG REFLEX. PATIENT HAVING EPISODES OF HIGH BP WHEN SEDATION IS DECREASED. PATIENT HAS NO COMPLAINTS OF PAIN. THE PLAN OF CARE IS TO CONTINUE TO MONITOR RESPIRATORY STATUS, PROMOTE NUTRITION AND COMFORT.
--- NOTE | 2019-05-13 19:33 | NUR ---
TUBE FEEDING INTIATED. JEVITY 1.5 @ 20. CVP AND ARTERIAL LINE REMOVED. REPORT GIVEN TO NIGHT NURSE.
[2019-05-14] VITALS (68 sets, daily range): BP systolic 121–175; BP diastolic 47–71
[2019-05-14 05:36] LABS: HEMATOCRIT 34.2 % (37.0-47.0); MCH 29.3 pg (26.0-34.0); MCHC 32.8 g/dL (28.0-37.0); MCV 89.5 fL (80.0-100.0); RBC 3.82 mil/uL (4.20-5.00); RDW 12.7 % (10.5-14.5); WBC 15.4 thou/uL (4.0-11.0)
[2019-05-14 05:39] LABS: CREATININE 0.4 mg/dL (0.6-1.0); POTASSIUM 3.4 mmol/L (3.5-5.1)
[2019-05-14 06:01] LABS: HEMOGLOBIN 11.2 gm/dL (12.0-15.0)
--- NOTE | 2019-05-14 19:24 | NUR ---
PT HAD THIRD PLASMAPHERESIS TODAY. PT FOLLOWS COMMAND. PT HYPERTENSIVE. DR. KIMBALL ORDERED NORVASC INSTEAD OF LISINOPRIL. WENDY INHIBITORS CONTRADICTED WIH PLASMAPHERESIS PER ABBI VICK. TALKED TO PT'S SON ABOUT PT PROGNOSIS. PT MOVING TOWARDS GOALS.
[2019-05-15] VITALS (24 sets, daily range): BP systolic 103–171; BP diastolic 49–74
[2019-05-15 05:45] LABS: CREATININE 0.4 mg/dL (0.6-1.0); POTASSIUM 3.4 mmol/L (3.5-5.1)
--- NOTE | 2019-05-15 06:00 | NUR ---
REMAINS INTUBATED AND SEDATED LIGHTLY WITH PROPOFOL AND FENTANYL GTTS. AROUSES EASILY AND FOLLOWS COMMANDS. VSS SINUS RHYTHM. 2200 CC UO THIS SHIFT WILL CONT TO MONITOR CLOSELY.
--- NOTE | 2019-05-15 15:34 | NUR ---
FOLLOWING FOR DC PLANNING. CLINCIAL INFO REVIEWED. REMAINS INTUBATED DAY 6. TOMORROW WILL BE #4/5 PHERESIS. CURRENTLY ON MESTINON AND CELLCEPT. PLAN TO WEAN ABLE LIKELY AFTER COMPLETION OF PLASMAPHERESIS.
--- NOTE | 2019-05-15 19:16 | NUR ---
ASSUMED CARE @ 0700 05/15/19, ASSESSMENTS AND VSS COMPLETE PER ICU PROTOCOL. FALL PRECAUTIONS IN PLACE. BLOOD BANK CALLED TO VERIFY ORDERS FOR PLASMAPHERESIS TOMORROW. PLAN OF CARE- CONT TO MONITOR. PT HAD AN UNEVENTFUL DAY.
[2019-05-16] VITALS (66 sets, daily range): BP systolic 87–130; BP diastolic 39–67
[2019-05-16 04:05] LABS: HEMATOCRIT 35.1 % (37.0-47.0); HEMOGLOBIN 11.7 gm/dL (12.0-15.0); MCH 29.7 pg (26.0-34.0); MCHC 33.2 g/dL (28.0-37.0); MCV 89.3 fL (80.0-100.0); RBC 3.93 mil/uL (4.20-5.00); RDW 12.4 % (10.5-14.5); WBC 14.5 thou/uL (4.0-11.0)
[2019-05-16 04:14] LABS: CALCIUM 8.2 mg/dL (8.5-10.1); CREATININE 0.4 mg/dL (0.6-1.0); POTASSIUM 3.4 mmol/L (3.5-5.1)
[2019-05-17] VITALS (26 sets, daily range): BP systolic 88–120; BP diastolic 42–55
[2019-05-17 05:24] LABS: CALCIUM 7.9 mg/dL (8.5-10.1); CREATININE 0.4 mg/dL (0.6-1.0); POTASSIUM 3.4 mmol/L (3.5-5.1)
--- NOTE | 2019-05-17 19:18 | NUR ---
PT POSTASSIUM REPLACED. STARTED IVF AT 75ML/HR. PT CALM AND ALERT. PT PROGRESSING TOWARDS GOAL. PLASMSPHERESIS TOMORROW.
[2019-05-18] VITALS (24 sets, daily range): BP systolic 93–152; BP diastolic 41–70
[2019-05-18 04:51] LABS: HEMATOCRIT 32.9 % (37.0-47.0); HEMOGLOBIN 10.8 gm/dL (12.0-15.0); MCH 29.7 pg (26.0-34.0); MCHC 32.9 g/dL (28.0-37.0); MCV 90.5 fL (80.0-100.0); RBC 3.63 mil/uL (4.20-5.00); RDW 12.6 % (10.5-14.5); WBC 14.7 thou/uL (4.0-11.0)
[2019-05-18 05:20] LABS: ANION GAP < 0 mmol/L (7-16); BUN 22 mg/dL (7-18); CALCIUM 8.3 mg/dL (8.5-10.1); CHLORIDE 105 mmol/L (98-107); CO2 39 mmol/L (21-32); CREATININE 0.4 mg/dL (0.6-1.0); GLUCOSE 130 mg/dL (74-106); MAGNESIUM 2.1 mg/dL (1.8-2.4); SODIUM 142 mmol/L (136-145)
[2019-05-18 05:24] LABS: POTASSIUM 4.4 mmol/L (3.5-5.1)
--- NOTE | 2019-05-18 09:13 | NUR ---
May need to reassess fluid provisions-pt has had 7 lb wt gain, has tube feed at 50ml/hr, ivf at 75ml/hr and water flushes 200ml every 6hr. Please address with physician.
--- NOTE | 2019-05-18 18:41 | NUR ---
FIFTH PLASMAPHERESIS DONE TODAY. PT FOLLOWS COMMAND. TOLERATING TUBE FEED. POSSBILE CPAP AND EXTUBATION TOMORROW.
[2019-05-19] VITALS (20 sets, daily range): BP systolic 93–155; BP diastolic 46–75
[2019-05-19 05:28] LABS: HEMATOCRIT 34.3 % (37.0-47.0); HEMOGLOBIN 11.1 gm/dL (12.0-15.0); MCH 29.5 pg (26.0-34.0); MCHC 32.3 g/dL (28.0-37.0); MCV 91.4 fL (80.0-100.0); RBC 3.76 mil/uL (4.20-5.00); RDW 12.9 % (10.5-14.5); WBC 20.7 thou/uL (4.0-11.0)
[2019-05-19 05:32] LABS: CALCIUM 8.6 mg/dL (8.5-10.1); CREATININE 0.4 mg/dL (0.6-1.0); MAGNESIUM 2.2 mg/dL (1.8-2.4); POTASSIUM 4.5 mmol/L (3.5-5.1)
--- NOTE | 2019-05-19 06:58 | NUR ---
Pt remains stable in this shift. She is calm, no sedation since 0245 hr. Her car body mechanic is much more stronger this am. Plan for weaning trial per notes.
[2019-05-19 12:13] LABS: BE(vivo) 6.3 mmol/L (-2 to +3); HCO3 31.3 mmol/L (22.0-26.0); PO2 94.8 mmHg (80.0-100.0); pH 7.442 (7.360-7.450); sO2 97.4 % (92.0-98.0)
--- NOTE | 2019-05-19 14:27 | NUR ---
FOLLOWING FOR DC PLANNING. CLINICAL INFO REVIEWED. PT EXTUBATED JUST BEFORE 2 PM AND ALERT AND ORIENTED. MET WITH PT AND FAMILY BRIEFLY TO DISCUSS REHAB OPTIONS. PT IS OPEN TO 5N STAY IF ACCEPTED. DR. BAIG CONSULTED AND SPOKE WITH NAVDEEP FROM 5N ADMISSIONS. RN UPDATED.
--- NOTE | 2019-05-19 19:17 | NUR ---
PT EXTUBATED 1350. PT VITALS LOOK STABLE. PT PROGRESSING TOWARDS GOALS.
[2019-05-20] VITALS (30 sets, daily range): BP systolic 110–148; BP diastolic 56–84
[2019-05-20 05:31] LABS: HEMATOCRIT 34.7 % (37.0-47.0); HEMOGLOBIN 11.3 gm/dL (12.0-15.0); MCH 29.3 pg (26.0-34.0); MCHC 32.6 g/dL (28.0-37.0); MCV 89.8 fL (80.0-100.0); RBC 3.86 mil/uL (4.20-5.00); RDW 12.8 % (10.5-14.5); WBC 21.9 thou/uL (4.0-11.0)
[2019-05-20 05:36] LABS: CALCIUM 8.9 mg/dL (8.5-10.1); CREATININE 0.4 mg/dL (0.6-1.0); MAGNESIUM 1.9 mg/dL (1.8-2.4)
--- NOTE | 2019-05-20 13:35 | NUR ---
PATIENT SEEN BY DR. BAIG THIS DATE. PATIENT IS A CONDIDATE FOR ACUTE REHAB. ANTICIPATE ADMISSION FOR TOMORROW, 05/21/19. HARDWARE SUPPLIES SALES REPRESENTATIVE INFORMED. THANK YOU FOR THIS REFERRAL.
--- NOTE | 2019-05-20 14:27 | NUR ---
SPEECH THERAPY/SWALLOW ASSESSMENT ON HOLD DUE TO PATIENT WEAKNESS. SWALLOW ASSESSMENT AND NUTRITIONAL PLAN WILL NEED TO BE IN PLACE PRIOR TO PATIENT BEING ADMITTED TO 5/ACUTE REHAB. MACHINE ICER INFORMED.
[2019-05-21] VITALS (45 sets, daily range): BP systolic 100–152; BP diastolic 53–86
--- NOTE | 2019-05-21 01:36 | NUR ---
RT DERICK ENTERED ROOM TO PERFORM VITAL CAPACITY TEST. AT THAT TIME PT WAS UNABLE TO FOLLOW ANY COMMANDS, UNABLE TO SPEAK/CLOSE MOUTH, MOVE EXTREMITIES. PRIOR TO THIS EVENT AT 0000 PATIENT WAS A&OX4, FOLLOWING ALL COMMANDS, AND ABLE TO MOVE EXTREMITIES. DR. SANDOVAL WITH NEUROLOGY WAS NOTIFIED. NEW ORDERS OBTAINED FOR STAT ABG, CBC, CMP. RESULTS WERE RELAYED BACK TO DR. SANDOVAL. NEW ORDERS OBTAINED FOR STAT HEAD CT W/O CONTRAST, AND A ONETIME DOSE OF PYRIDOSTIGMINE 30MG PER TUBE. PATIENT NOW MORE ALERT, FOLLOW COMMANDS AND ABLE TO MOVE EXTREMITIES. STILL UNABLE TO TALK, AND MORE WEAK THAN PREVIOUSLY IN MY SHIFT. AWAITING CT RESULTS. WILL CONTINUE TO MONITOR PATIENT CLOSELY. NO CHANGES IN RESPIRATORY STATUS. PATIENT NOW ON RA SATING 99%.
[2019-05-21 01:43] LABS: BE(vivo) 5.3 mmol/L (-2 to +3); HCO3 30.2 mmol/L (22.0-26.0); PCO2 45.5 mmHg (35.0-45.0); PO2 121.3 mmHg (80.0-100.0); sO2 98.5 % (92.0-98.0)
[2019-05-21 01:55] LABS: HEMATOCRIT 35.5 % (37.0-47.0); HEMOGLOBIN 11.5 gm/dL (12.0-15.0); MCH 29.1 pg (26.0-34.0); MCHC 32.3 g/dL (28.0-37.0); MCV 90.3 fL (80.0-100.0); RBC 3.93 mil/uL (4.20-5.00); RDW 13.1 % (10.5-14.5); WBC 18.2 thou/uL (4.0-11.0)
[2019-05-21 01:59] LABS: CALCIUM 9.1 mg/dL (8.5-10.1); CREATININE 0.4 mg/dL (0.6-1.0)
[2019-05-21 02:05] LABS: ALBUMIN 3.6 g/dL (3.4-5.0); TOTAL PROTEIN 5.8 g/dL (6.4-8.2)
[2019-05-21 05:47] LABS: HEMATOCRIT 35.6 % (37.0-47.0); HEMOGLOBIN 11.5 gm/dL (12.0-15.0); MCH 29.3 pg (26.0-34.0); MCHC 32.2 g/dL (28.0-37.0); MCV 90.8 fL (80.0-100.0); RBC 3.92 mil/uL (4.20-5.00); WBC 20.8 thou/uL (4.0-11.0)
[2019-05-21 06:22] LABS: CALCIUM 9.4 mg/dL (8.5-10.1); CREATININE 0.4 mg/dL (0.6-1.0); MAGNESIUM 2.1 mg/dL (1.8-2.4); POTASSIUM 3.6 mmol/L (3.5-5.1)
--- NOTE | 2019-05-21 08:38 | NUR ---
ST ORDERS FOR BEDSIDE SWALLOW WERE CANCELLED 05/20/[address] SESAY PATIENT WAS NOT READY FOR ORAL INTAKE. PATIENT REPORTEDLY HAD AN EPISODE OF DECREASED RESPONSIVENESS LAST NIGHT. ST AWAITING NEW ORDERS WHEN DETERMINED APPROPRIATE FOR ORAL INTAKE TRIALS.
--- NOTE | 2019-05-21 14:27 | NUR ---
SPOKE WITH . HE WANTS TO LEAVE THE DIALYSIS CATHERTER IN ONE MORE DAY AND DR. NOE IS AGREEABLE WITH THAT
--- NOTE | 2019-05-21 16:38 | NUR ---
[facility] acute rehab can accept the pt once medically stable. ST eval and diet order pending. Likely transfer out of ICU soon. [facility] will have a bed tomorrow or on the weekend. Will follow.
[2019-05-22] VITALS (36 sets, daily range): BP systolic 104–146; BP diastolic 50–80
[2019-05-22 05:58] LABS: CALCIUM 9.1 mg/dL (8.5-10.1); CREATININE 0.4 mg/dL (0.6-1.0); POTASSIUM 4.1 mmol/L (3.5-5.1)
--- NOTE | 2019-05-22 06:32 | NUR ---
Pt has had quiet night. Monitor remains sinus rhythm. Has remained oriented to person, place and situation. Has swallowed oral meds crushed in applesauce without problem; pt uses good technique of swallowing twice after each bite. Skin integrity remains intact.
--- NOTE | 2019-05-22 13:02 | NUR ---
FOLLOWING FOR DC PLANNING, PT AGREEABLE TO [facility] STAY AND HAD VIDEO SWALLOW TODAY WITH DIET UPGRADE. STANDIEE PER HOSPITALIST FOR TRANSFER TO [facility] TODAY. [facility] ADMISSIONS CONFIRMS ABLE TO ACCEPT TODAY.
[2019-05-22] MEDS ORDERED: PEDIA-LAX50 MG/15 M PER TUBE (16:12)
[2019-05-22] MEDS ORDERED: MIRALAX17 GM PO (16:12)
[2019-05-22] MEDS ORDERED: SOLU-MEDRO40 MG/1 M1 IV PUSH (16:12)
[2019-05-22] MEDS ORDERED: PYRIDOSTIGMINE60 M1 PO (16:12)
[2019-05-22] MEDS ORDERED: FAMOTIDINE20 MG/2 M2 IV PUSH (16:12)
[2019-05-22] MEDS ORDERED: CYMBALTA20 MG PO (16:12)
[2019-05-22] MEDS ORDERED: ENOXAPARIN40 MG/0.1 SUBQ (16:12)
[2019-05-22] MEDS ORDERED: ALBUTEROL2.5 MG/31 INH (16:12)
--- NOTE | 2019-05-22 17:45 | NUR ---
PT IS ALERT AND ORIENTED X4. LUNGS ARE CLEAR TO DIMINISHED. ON ROOM AIR. FAMILY AT BEDSIDE FOR SUPPORT. PT IS PLEASANT AND COOPERATIVE WITH NURSING CARE. BIGGS TO DD/ DISCONTINUE TODAY. VOIDED SINCE REMOVAL. PASSED HER SWALLOW STUDY TODAY. EATING GOOD WITH NURSING ASSISTANCE. SCDS ON BILATERAL. SINUS RHYTHM ON THE SENIOR TEST ENGINEER. DENIES ANY PAIN ISSUES. INSTRUCTED SHE WILL TRANSFER TO REHAB TODAY.
== END 2019-05-22 19:45 | DRG 207 ==
LOC: ER 14:11 → 4E 17:10 → EROBS 17:33 → ICU 17:33 → 4E 17:33 → 4S 05-08 20:16 → ICU 05-10 10:19
PROVIDERS: Emergency Medicine; Internal Medicine; Internal Medicine Pulmonary Disease; Nurse Practitioner Family; Psychiatry & Neurology Neurology; Psychiatry & Neurology Neuromuscular Medicine; ADMIT Hospitalist
PROC: 02HV33Z Insertion of Infusion Device into Superior Vena Cava, Percutaneous Approach (ICD-10-PCS; principal; 2019-05-10)
PROC: 5A1955Z Respiratory Ventilation, Greater than 96 Consecutive Hours (ICD-10-PCS; principal; 2019-05-10)
PROC: 0BH17EZ Insertion of Endotracheal Airway into Trachea, Via Natural or Artificial Opening (ICD-10-PCS; principal; 2019-05-10)
PROC: 03HY32Z Insertion of Monitoring Device into Upper Artery, Percutaneous Approach (ICD-10-PCS; principal; 2019-05-10)
PROC: B548ZZA Ultrasonography of Superior Vena Cava, Guidance (ICD-10-PCS; principal; 2019-05-10)
PROC: 0CJS8ZZ Inspection of Larynx, Via Natural or Artificial Opening Endoscopic (ICD-10-PCS; principal; 2019-05-10)
DX: J96.02 Acute respiratory failure with hypercapnia (principal); G70.01 Myasthenia gravis with (acute) exacerbation; N17.9 Acute kidney failure, unspecified; E87.0 Hyperosmolality and hypernatremia; R13.10 Dysphagia, unspecified; H53.2 Diplopia; E78.5 Hyperlipidemia, unspecified; J96.01 Acute respiratory failure with hypoxia; E55.9 Vitamin D deficiency, unspecified; M19.90 Unspecified osteoarthritis, unspecified site; I95.9 Hypotension, unspecified; D72.829 Elevated white blood cell count, unspecified; R00.1 Bradycardia, unspecified; E87.70 Fluid overload, unspecified; D69.6 Thrombocytopenia, unspecified; R73.9 Hyperglycemia, unspecified; T38.0X5A Adverse effect of glucocorticoids and synthetic analogues, initial encounter; Y92.89 Other specified places as the place of occurrence of the external cause; Z79.82 Long term (current) use of aspirin; Z79.899 Other long term (current) drug therapy; Z90.11 Acquired absence of right breast and nipple; Z85.3 Personal history of malignant neoplasm of breast; Z88.8 Allergy status to other drugs, medicaments and biological substances
CPT/HCPCS: 10078; 10084; 10100; 10203; 27000; 32302; 85026

== ENCOUNTER 2019-05-20 13:15 | Inpatient (IN) | payer OTHER ==
[~2019-05-20] VITALS: Ht 160 cm; Wt 58.7 kg
--- NOTE | ~2019-05-20 | H ---
[facility] [place] [address] HISTORY AND PHYSICAL Name: JOSSYISAIInez RIVAS Room #: PRE IN [facility].#: [id number] Admission: Attend Phys: Mega Bui MD Discharge: Date of : 43 Report #: [id number] THIS REPORT FOR: //name// CC: Mega Fraustosilvia Siobhan DATE OF SERVICE: 05/22/2019 HISTORY OF PRESENT ILLNESS: This is a 73-year-old female who presented to the hospital with increasing weakness, shortness of breath and onset of diplopia. She was noted to be in acute respiratory both hypercapnic and hypoxemic failure. She was diagnosed with severe acute exacerbation of her myasthenia gravis. She was mechanically ventilated from 05/10/2019 until 05/19/2019 until her fifth dose of plasmapheresis was completed. Neurology and Pulmonary Services closely involved. There is also a question of probable nosocomial pneumonia. She has been treated with steroids by IV CellCept and Mestinon. She does have leukocytosis with a white count of 20,000; however, this is secondary to steroids, most likely. The patient worked with speech therapy today and had a video swallow, which she passed and is able to be started on an oral diet. Her Dobbhoff and tube feedings were discontinued. No further plans for plasmapheresis this hospital stay. Due to her extreme debility, she will be admitted to inpatient rehabilitation unit. Today, the patient denies any headache or dizziness. She does easily fatigue. She denies cough, shortness of air or chest pain. She denies abdominal pain or nausea. She had a Jimenez catheter in and that has just been removed. She denies any specific pains. PAST MEDICAL HISTORY: CLL, breast cancer with history of right mastectomy, hyperlipidemia. Her myasthenia gravis was diagnosed in 09/2018. HABITS: The patient is a nonsmoker. No illicit drug use. Alcohol on social occasions. SOCIAL HISTORY: The patient lives alone in a 2-story house. She has 1 step to enter and 14 inside. She utilized a cane or a front-wheel walker. She is independent with her ADLs and IADLs. She has a supportive son that lives nearby. ALLERGIES: To HYDRALAZINE and BENADRYL. CURRENT MEDICATIONS: Solu-Medrol 40 mg IV daily, pyridostigmine 30 mg 6 times a day by mouth, albuterol q. 6 hours while awake, Colace 100 mg twice a day, clonidine 0.8 mg p.r.n., Pepcid 20 mg twice a day, insulin sliding scale q. 6 hours while on steroids, Cymbalta 20 mg twice a day, Lovenox 40 mg at bedtime, MiraLax 17 grams daily p.r.n. [facility] [address] [place] [address] HISTORY AND PHYSICAL Name: JOSSYISAI ROB Room #: PRE IN M.R.#: [id number] Admission: Attend Phys: Mega Bui MD Discharge: Date of : 43 Report #: [id number] CODE STATUS: Full code. REVIEW OF SYSTEMS: Remainder of her 14-point review of systems is negative except as listed in HPI. PHYSICAL EXAMINATION: VITAL SIGNS: Blood pressure 120/66, respirations 20, pulse is 77, temperature 98.7. She is 97% O2 sat on room air. GENERAL: She is awake, alert. She appears oriented x 3. Her voice is very soft spoken, but not really hoarse. HEAD: Head is normocephalic. EYES: EOMs are intact. No icterus. ENT: No pharyngitis. NECK: No lymphadenopathy. CARDIAC: Regular rate and rhythm, S1, S2. CHEST: Lungs are clear to auscultation. No wheeze or crackles. ABDOMEN: Bowel sounds are positive. Soft, nontender, nondistended. GENITOURINARY: Nonpalpable bladder. Jimenez catheter has just been removed. She has not yet urinated. EXTREMITIES: Functional range of motion of bilateral upper extremities with a gross strength of 3+ to 4/5. She has functional range of motion of the lower extremities. She has a negative Homans sign. She has no calf tenderness. She has no clonus. She has no edema. Sit to stand with max assist, max assist to take two steps with a handheld assist, mod assist for bathing, dependent lower extremity dressing, dependent for toileting. She has poor sitting balance at this time, easily fatigued with activity. LABORATORY DATA: From 05/22/2019 shows sodium 142, potassium 4.1, BUN 19, creatinine 0.4. On 05/21/2019; WBCs 20.8, hemoglobin 11.5, platelets 164. ASSESSMENT: 1. Severe myasthenia gravis exacerbation. 2. Acute respiratory hypoxic and hypercapnic failure with prolonged mechanical ventilation, extubated on 05/19/2019. 3. Probable nosocomial pneumonia. 4. Hypertension. 5. Hypernatremia, now resolved. PLAN: The patient will be admitted to [address] [place] [address] Inpatient Rehabilitation for physical, occupational and speech therapy services. She will continue to have her hospital consultants follow her on the rehab unit. The patient will have Social work services consulted for discharge planning needs. She will have a team conference next Saturday. She has SCDs and Lovenox for DVT prophylaxis. She has Pepcid for GI prophylaxis. Please see extensive orders. [facility] [address] [place] [address] HISTORY AND PHYSICAL Name: ISAI FENTON Room #: PRE IN M.R.#: [id number] Admission: Attend Phys: Mega Bui MD Discharge: Date of : 43 Report #: [id number] Thank you very much. By: 1545 [id number] IRIS Bhakta /mychal
[2019-05-22] MEDS ORDERED: CYMBALTA20 MG PO (16:12)
[2019-05-22] MEDS ORDERED: ALBUTEROL2.5 MG/31 INH (16:12)
[2019-05-22] MEDS ORDERED: ENOXAPARIN40 MG/0.1 SUBQ (16:12)
[2019-05-22] MEDS ORDERED: PEDIA-LAX50 MG/15 M PER TUBE (16:12)
[2019-05-22] MEDS ORDERED: PYRIDOSTIGMINE60 M1 PO (16:12)
[2019-05-22] MEDS ORDERED: MIRALAX17 GM PO (16:12)
[2019-05-22] MEDS ORDERED: SOLU-MEDRO40 MG/1 M1 IV PUSH (16:12)
[2019-05-22] MEDS ORDERED: FAMOTIDINE20 MG/2 M2 IV PUSH (16:12)
[2019-05-22 19:30] VITALS: BP 131/62
--- NOTE | 2019-05-22 23:37 | NUR ---
RECEIVED REPORT FROM RAILROAD SIGNAL TECHNICIAN. PT ADMITTED TO REHAB UNIT AROUND SHIFT CHANGE THIS EVENING. FAMILY WAS AT BEDSIDE. ADMISSION ASSESSMENT AND HISTORY COMPLETED. PT DENIES AND PAIN. SHE IS PLEASANT AND A&OX4. Q2H TURN TO PREVENT SKIN BREAKDOWN. FALL PRECAUTIONS IN PLACE. REPORT GIVEN TO ONCOMING NURSE AROUND 2330.
--- NOTE | 2019-05-23 05:46 | NUR ---
ASSUME CARE 85483. PT RESTING QUIETLY WITH NO DISTRESS NOTED. INCONTINENT OF BOWEL AND BLADDER. ASSESSMETN CHARGTED. PROGRESSING WELL WITH POC. Q2 TURNS WITH PATIENT'S ASSISTANCE. PLAN IS TO CONTINUE TO MONITOR REPIRATORY FUNCTION, ENCOURAGE ACTIVITY, MONITOR FOR ASPIRATION WITH FEEDING AND ENSURE PROGRESSION OF DIET TO REGULAR. POSSIBLE DISCHARGE WITHIN A FEW DAYS TO SON'S PLAE INSTEAD OF HE LIVING BY HERSELF. WILL CONTINUE TO FOLLOW WI POC
[2019-05-23 08:45] VITALS: BP 138/74
--- NOTE | 2019-05-23 13:23 | NUR ---
ASSUMED CARES AT 0700. PT AWAKE, ALERT AND ORIENTED*4. DENIES PAIN AT THIS TIME. VITALS REMAIN STABLE. PT HAD ATE 40-50% OF HER MEALS, TOLERATES MECH. CHOPPED WELL, UPGRADED TO THIN LIQUIDS TODAY BY ST AND TOLERATES WELL. CONTINUES TO HAVE WEAKNESS BLE, TAKING SMALL STEPS WITH TRANSFERS, REMAINS MOD-MAX ASSIST. UP IN THE W/C FOR MEALS. PARTICIPATED IN ALL THE THERAPIES. Q1H VISUAL CHECKS. CALL LIGHT WITHIN REACH. FALL PRECAUTIONS IN PLACE
[2019-05-23 19:30] VITALS: BP 113/51
--- NOTE | 2019-05-24 07:36 | NUR ---
PROGRESS PT A/O X4 LUNGS CLEAR, ABDOMEN SOFT NON TENDER WITH ACTIVE BS, INCONTINENT OF STOOL AND URINE X 1. UP TO BS WITH 1 GB AND WALKER GAIT SLOW BUT STEADY. VOIDING QS. DENIES PAIN. BARRIER CREAM TO SACRUM NO REDNESS NOTED. CONTINUE POC.
[2019-05-24 07:40] VITALS: BP 127/57
--- NOTE | 2019-05-24 10:10 | NUR ---
ASSUMED CARE OF PT AT 0715. PT IS A&OX4. IS ON ROOM AIR. DENIES PAIN. IS STABLE. IS UP WITH 1 ASSIST, GERARDO W. FALL PRECAUTIONS & HOURLY ROUNDING MAINTAINED. LABS & VITALS REVIEWED. PT HAS JUST COMPLETED PHYSICAL THERAPY SESSION. IS IN ROOM WITH FAMILIY. CALL LIGHT WITHIN REACH. WILL CONTINUE TO MONITOR.
[2019-05-24 19:25] VITALS: BP 109/52
--- NOTE | 2019-05-25 01:44 | NUR ---
Patient assessed and is alert x 4. Skin warm and dry. Resp even amnd unlabored.HAS SOME BRUSING ON ARMS AND HAS NO OPEN SKIN ISSUES. LEFT ARM PICC LINE FLUSHES WELL.TURNS SELF IN BED WITH SOME INCOURGEMENT. LUNGS CTA-DISM. LIMB ALERT ON LEFT ARM. TAKES MEALS WELL AND WITH THIN LIQUIDS. DENIES ANY SOA OR PAIN. REMAINS A FALL RISK. DRESSING TO LEFT NECK OFF, HAS SMALL AMOUNT OF BRUSING NOTED. UP WITH MOD ASSIST TO BATHROOM AND USE OF GAIT BELT AND WALKER. DID USE THE BSC LAST NIGHT. BUT WALKS WEL. ON ROOM AIR. CONT PLAN OF CARE.
--- NOTE | 2019-05-25 10:04 | NUR ---
ASSUMED CARE AT 0700. PATIENT IS ALERT AND ORIENTED X4. PATIENT IS UP WITH ASSIST OF 1 STAFF, GAIT BELT AND WALKER. LUNGS ARE CLEAR AND DEMINISHED. ABD IS SOFT WITH BSX4. NO BP ON THE RIGHT. PATIENT HAS PICC LINE IN HER LEFT UPPER ARM. FALL AND AND SAFETY PROTOCOLS IN PLACE. DENIES ANY PAIN AT THIS TIME. WILL CONTNUE TO MONITER.
--- NOTE | 2019-05-25 12:29 | NUR ---
chart review. pt preferrs going by hannah. she up sitting on edge of bed, having lunch. pt a & o x 3, pleasant and able to make her needs know. intro to cm, team and transition of care. noted she lives alone, independent prior to admission. 1 step to enter in home and 1 step inside the home. manage her own medication. has cane and 4ww. will cont following as needed for dc needs.
[2019-05-25 19:08] VITALS: BP 130/58
[2019-05-25 19:55] VITALS: BP 111/53
--- NOTE | 2019-05-26 02:13 | NUR ---
PT ALERT AND ORIENTED X 4. LEFT PICC LINE INTACT AND PATENT. PT DENIES PAIN OR DISCOMFORT. BED ALARM ON FOR SAFETY. PT APPEARS TO BE SLEEPING ON HOURLY ROUNDS.
--- NOTE | 2019-05-26 07:44 | NUR ---
ASSUMED CARE AT 0700. PAITENT IS ALERT AND ORIENTED X4. PATIENT BAHENA'S, GEOMETRICIAN ARE EQUAL. LUNGS ARE CLEAR. ABD IS SOFT WITH BSX4. UP TO THE BATHROOM TO VOID ABMER COLORED URINE. UP ON SIDE OF BED FOR MEALS. FALL AND SAFETY PROTOCOLS IN PLACE. DENIES ANY PAIN AT THIS TIME. WILL CONTINUE TO MONITER.
--- NOTE | 2019-05-26 12:34 | NUR ---
team meeting, recommendation: dc 06/03/19 with [facility] ( pt, ot, st and nursing).
[2019-05-26 19:55] VITALS: BP 114/54
--- NOTE | 2019-05-27 03:52 | NUR ---
assumed care at approx 1900 evening 05/26. pt alert and oriented x4, appropriate and cooperative. pt sitting up in recliner at change of shift and assisted into bed with standby assist. pt took hs meds with water tolerating well. pt appears to be sleeping soundly with hourly rounding checks. bed alarm on and call light in reach. will continue to monitor.
--- NOTE | 2019-05-27 14:05 | NUR ---
Patient participated in community reintegration on 05/27/19 with PHYSICAL THERAPY. Refer to documentation by PHYSICAL THERAPIST.
--- NOTE | 2019-05-27 14:29 | NUR ---
ASSUMED CARES AT 0700. PT AWAKE, ALERT AND ORIENTED*4. DENIES PAIN. VITALS REMAIN STABLE. SKIN REMAINS DRY AND INTACT. PT UP WITH SBA, GB AND WALKER AND TOLERATED WELL. C/O WEAKNESS IN BLE BUT STEADY ON HER FEET. LEFT UPPER ARM PICC REMAINS INTACT AND ALL THREE PORTS FLUSHED AND ASPIRATED FOR BLOOD RETURN. Q1H VISUAL CHECKS. CALL LIGHT WITHIN REACH. FALL PRECAUTIONS IN PLACE
--- NOTE | 2019-05-27 15:16 | NUR ---
Patient participated in community reintegration on 05/27/19 with PT. Refer to documentation by RAYMOND VILLALBA.
[2019-05-27 19:30] VITALS: BP 114/51
--- NOTE | 2019-05-28 01:25 | NUR ---
PT ALERT AND ORIENTED X 4. AMB TO BR WITH WALKER AND ASSIST X 1. LEFT PICC LINE INTACT. PT REFUSED COLACE AT HS. VITAL CAPACITY AT START OF SHIFT WAS 2.8. PT STATED SHE DID NOT WANT TO BE AWAKENED DURING THE NIGHT TO HAVE THAT CHECKED. PT DENIES PAIN OR DISCOMFORT. BED ALARM ON FOR SAFETY. PT APPEARS TO BE SLEEPING ON HOURLY ROUNDS.
[2019-05-28 08:13] VITALS: BP 121/74
--- NOTE | 2019-05-28 11:04 | H ---
[facility] [place] [address] HISTORY AND PHYSICAL Name: ISAI FENTON Room #: 505-P ADM IN M.R.#: [id number] Admission: 05/22/19 Attend Phys: Mega Bui MD Discharge: Date of : 43 Report #: [id number] THIS REPORT FOR: //name// CC: Mega Bui Arturo Lu DATE OF SERVICE: 05/22/2019 HISTORY AND PHYSICAL AND POST-ADMISSION PHYSICIAN EVALUATION HISTORY OF PRESENT ILLNESS: The patient is previously known to us who was then readmitted with a severe exacerbation of her myasthenia gravis. She had acute respiratory hypoxic and hypercapnic failures with prolonged mechanical ventilation and was extubated on 05/19/2019. She also has probable nosocomial pneumonia. She is quite weak and debilitated. She is continuing on IV Solu-Medrol. She has had closed involvement with Neurology and Pulmonary Medicine. Please see the full admission history and physical and agree with the findings and the assessment and plan as noted. She has now been readmitted for acute in-hospital inpatient rehabilitation. PHYSICAL EXAMINATION: VITAL SIGNS: Her temperature is 36.7, pulse 84, respirations 20, and blood pressure 138/74. CHEST: Clear. CARDIOVASCULAR: Regular rate and rhythm. ABDOMEN: Bowel sounds positive, nontender. She is small statured, thin and somewhat frail. EXTREMITIES: Functional range of motion of the upper extremity strength is 3+/5. Lower extremities functional range of motion with strength grade 3+/5. She is max assist with sit to stand. She does have decreased sitting balance. She also has dysphagia with recommendations for nectar thickened liquids. IMPRESSION: 1. Severe myasthenia gravis exacerbation. 2. Acute respiratory hypoxic and hypercapnic failure with prolonged mechanical ventilation. 3. Probable nosocomial pneumonia. 4. Dysphagia, on nectar thickened liquids. 5. Hypertension. 6. Hypernatremia, resolved. PLAN: The patient has been admitted for acute in-hospital inpatient rehabilitation. From a postadmission physician evaluation perspective, there are no relevant changes since the preadmission screening. Please see the review of prior and current medical and functional conditions and comorbidities. Please see the patient's previous and current functional status. As far as risk [address] [address] HISTORY AND PHYSICAL Name: ISAI FENTON Room #: 505-P [facility].#: [id number] Admission: 05/22/19 Attend Phys: Mega Bui MD Discharge: Date of : 43 Report #: [id number] of complications, she has multiple medical comorbidities as noted above. Initial plan of care involves the interdisciplinary acute inpatient rehabilitation program. Measurable functional goals would be for the patient to become modified independent with transfers, mobility, ADLs, so she can hopefully return back to her prior living situation. Prognosis is reasonably good with estimated length of stay probably at least 2-1/2 to 3 weeks. Potential barriers would include her multiple medical comorbidities and decreased functional status. The patient meets diagnostic criteria for an acute in-hospital inpatient rehabilitation stay. She meets the medical necessity criteria and we will have the multiple gift consultant physicians continue to follow. She does have the tolerance for therapies and has appropriate discharge goals back to the home setting. <ELECTRONICALLY SIGNED> By: Mega Bui MD 05/28/19 1104 [id number] Mega Bui MD /nt
--- NOTE | 2019-05-28 11:04 | PLAN ---
[facility] [place] [address] REHAB UNIT PLAN OF CARE Name: ISAI FENTON Room #: 505-P ADM IN M.R.#: [id number] Admission: 05/22/19 Attend Phys: Mega Bui MD Discharge: Date of : 41 Report #: [id number] THIS REPORT FOR: //name// CC: Mega Bui Arturo Mccann DATE OF SERVICE: 05/25/2019 PROGRESS NOTE AND OVERALL PLAN OF CARE SUBJECTIVE: The patient is seen back today in followup. She is in no distress. Last recorded temperature was 98.1, pulse was 75, respirations 18, and blood pressure was 109/52. The patient is alert. She is pleasant. She is doing better this morning with sit to stand transfers, had a more of a mod assist as opposed to max assist. She has had some transfers that have been at a min assist. She has ambulated up to 83 feet with a front-wheeled walker with min assist. In occupational therapy, lower body dressing is max assist. In speech therapy, she is on a mechanical soft nectar thickened liquid diet. She has moderate cognitive deficits. ASSESSMENT: 1. Severe myasthenia gravis exacerbation. 2. Acute hypoxic and hypercapnic respiratory failure with prolonged mechanical ventilation since resolved. 3. Probable nosocomial pneumonia. 4. Dysphagia, nectar thickened liquids. 5. Hypertension. 6. Hypernatremia, resolved. PLAN: The overall plan of care is based on the preadmission screen, post-admission physician evaluation, and information garnered from therapy assessments. 1. Estimated length of stay is probably at least 2-3 weeks. 2. Medical prognosis is reasonably good. 3. Anticipated interventions includes the interdisciplinary acute inpatient rehabilitation program. 4. Anticipated functional outcomes would be for the patient to become modified independent with transfers, mobility, and ADLs, so that she can hopefully return back to her prior living situation. Also to improve as far as her swallowing issues and cognition. 5. Discharge destination would be back to the home setting, where she lives in a 2-nyla house alone. 6. Expected therapy by discipline includes PT, OT, and speech 1 hour per day [address] [address] REHAB UNIT PLAN OF CARE Name: ISAI FENTON Room #: 505-P ADM IN .R.#: [id number] Admission: 05/22/19 Attend Phys: Mega Bui MD Discharge: Date of : 41 Report #: [id number] each five days a week throughout the duration of the acute inpatient rehabilitation stay. <ELECTRONICALLY SIGNED> By: Mega Bui MD 05/28/19 1104 [id number] Mega Bui MD /PMT
[2019-05-28 20:23] VITALS: BP 125/60
--- NOTE | 2019-05-28 20:43 | NUR ---
PATIENT ALERT AND ORIENTED WITH FAMILY AT BEDSIDE THIS AFTERNOON. COOPERATIVE WITH POC.
--- NOTE | 2019-05-28 23:33 | NUR ---
PT ASSESSMENT DONE AND VSS. MED GIVEN AND WELL TOLERATED. FALL PRECAUTIONS IN PLACE. SLEEPING. WILL CONTINUE TO MONITOR.
[2019-05-29 06:07] LABS: ABSOLUTE NEUTROPHILS 5.4 thou/uL (1.4-8.2); BASOPHILS 0.1 % (0.0-2.0); EOSINOPHILS 0.1 % (0.0-3.0); HEMATOCRIT 29.4 % (37.0-47.0); HEMOGLOBIN 9.6 gm/dL (12.0-15.0); LYMPHOCYTES 49.3 % (24.0-44.0); MCH 29.9 pg (26.0-34.0); MCHC 32.7 g/dL (28.0-37.0); MCV 91.6 fL (80.0-100.0); MONOCYTES 4.3 % (1.0-8.0); PLATELET COUNT 167 thou/uL (150-400); POLYS 46.2 % (36.0-66.0); RBC 3.21 mil/uL (4.20-5.00); WBC 11.8 thou/uL (4.0-11.0)
[2019-05-29 06:33] LABS: ALBUMIN 3.1 g/dL (3.4-5.0); CALCIUM 8.6 mg/dL (8.5-10.1); CREATININE 0.4 mg/dL (0.6-1.0); MAGNESIUM 1.7 mg/dL (1.8-2.4); POTASSIUM 3.4 mmol/L (3.5-5.1); TOTAL BILIRUBIN 0.5 mg/dL (<0.1-1.0); TOTAL PROTEIN 5.6 g/dL (6.4-8.2)
[2019-05-29 09:46] VITALS: BP 118/63
--- NOTE | 2019-05-29 12:37 | NUR ---
ASSUMED CARES AT 0700. PT AWAKE, ALERT AND ORIENTED*4. DENIES PAIN. VITALS REMAIN STABLE. PARTICIPATED IN ALL THERAPIES AND TOLERATED WELL. POTASSIUM AND MAGNESIUM REPLACED, PT HAD TROUBLE SWALLOWING THE BIG PILLS, SPLIT IN HALF AND USED APPLESAUCE. UP WITH 1 SBA, GB AND WALKER. Q1H VISUAL CHECKS. CALL LIGHT WITHIN REACH. FALL PRECAUTIONS IN PLACE
[2019-05-29 21:07] VITALS: BP 111/49
--- NOTE | 2019-05-30 02:45 | NUR ---
assumed care at approx 1900 evening 05/29. pt dozing off and on at change of shift with pt stating she had a busy day with therapy and was tired. pt awoke for hs meds alert and oriented x4. took hs meds with water tolerating well. pt appears to be sleeping well with hourly rounding. bed alarm on and call light in reach. will continue to monitor.
[2019-05-30 09:22] VITALS: BP 119/66
--- NOTE | 2019-05-30 11:04 | NUR ---
ASSUMED CARES AT 0700. PT AWAKE, ALERT AND ORIENTED*4. DENIES PAIN. VITALS REMAIN STABLE. PT UP EVERY 45-1HR THIS MORNING TO URINATE,URINE REMAINS LIGHT YELLOW AND CLEAR WITH NO FOUL ODOR. PT DENIES PAIN/BURNING WITH URINATION. *1 BM THIS AM, ABDOMEN SOFT AND ROUND, PT REFUSED COLACE THIS AM. CALLED APPROPRIATELY FOR HER MEDICATIONS. Q1H VISUAL CHECKS. CALL LIGHT WITHIN REACH. FALL PRECAUTIONS IN PLACE
--- NOTE | 2019-05-30 14:05 | HC ---
[facility] [place] [address] CONSULTATION Name: ISAI FENTON Room #: 505-P ADM IN M.R.#: [id number] Admission: 05/22/19 Attend Phys: Mega Bui MD Discharge: Date of : 41 Report #: [id number] THIS REPORT FOR: //name// CC: Mega Bui Arturo Mccann DATE OF SERVICE: 05/25/2019 NEUROBEHAVIORAL STATUS EXAM ATTENDING PHYSICIAN: Mega Bui M.D. TRAVELING CLERK: Felipe Parisi, PhD. CLINICAL PRESENTATION: The patient is a 73-year-old female admitted to the rehabilitation unit for comprehensive inpatient rehabilitation program to improve functional mobility, activities of daily living and self-care and mental status secondary to deficits from acute respiratory failure. She was initially admitted to the hospital on 05/10/2019 and mechanically ventilated with a diagnosis of a severe acute exacerbation of myasthenia gravis. She was extubated on 05/19/2019 following the last dose of plasmapheresis. Her assessment on admission for inpatient rehabilitation was severe myasthenia gravis exacerbation, acute respiratory hypoxic and hypercapnic failure with prolonged mechanical ventilation, probable nosocomial pneumonia, hypertension and hypernatremia, now resolved. A complete description of her medical condition and history along with medications can be found in her medical record. Neuropsychological consultation was requested to provide assistance in the assessment of cognitive and emotional status and to provide recommendations and services. Prior to this most recent admission, she was living independently in her own home. The patient has 1 son. She has one brother that lives nearby and her son has been providing assistance as needed. She discontinued driving. The patient is a high school graduate. She was employed at [employer] prior to her senior care. TECHNIQUES UTILIZED: Clinical interview, review of medical records, staff consultation and behavioral observation, mini mental status exam 2 standard version, clock drawing and verbal fluency assessment (category and letter). EXAMINATION FINDINGS: The patient was alert and cooperative with the assessment. She accurately described events surrounding her admission. There is no evidence of aphasia. Her thoughts are logical and goal oriented. There is no evidence of thought disorder. She does not report auditory or visual hallucinations. Her symptoms are primarily described as fatigue and tiredness. [facility] [address] [place] [address] CONSULTATION Name: ISAI FENTON Room #: 505-P [facility] IN .R.#: [id number] Admission: 05/22/19 Attend Phys: Mega Bui MD Discharge: Date of : 41 Report #: [id number] She acknowledges a variability in memory and decreased word finding. She does not report subjective anxiety or depression. She states her appetite and sleep are both good. Her performance on the MMSE 2 brief version is within normal limits with a raw score of 15/16. She was 3/3 for initial registration, 5/5 for orientation to time and place and 2/3 for immediate recall of 3 items after a brief time delay and distraction. Her performance on the MMSE 2 standard version is within normal limits with a raw score of 27/30 and a T score of 50. She was 3/5 for serial sevens, 2/2 for naming, 1/1 for repetition, 3/3 for auditory comprehension. She could read and follow a single command, write a sentence and copy a simple geometric design. Clock drawing is within normal limits. Letter fluency was extremely low with a raw score 7, T score of 20, percentile rank of less than 1. Category fluency was extremely low with a raw score of 24, T score of 27, percentile rank of 1 and overall total fluency was extremely low with a raw score of 31, T score of 20 and percentile rank of less than 1. The patient is presenting with deficits in thought organization that are seen when engaged in complex verbal fluency. Decreased verbal fluency can often be attributed to executive dysfunction. However, she is alert and oriented. She does not report depression or anxiety. Her mood does appear optimistic and pleasant. DIAGNOSTIC IMPRESSION: Mild neurocognitive disorder, unspecified, without behavior disorder. RECOMMENDATIONS: The patient will likely require increased assistance in the management of medication and finances. She has already discontinued driving because of medical concerns. While she is alert and oriented, she may have difficulty with more complex problem solving upon her return home and increased assistance will be of benefit to assist in adjustment. Cognitive strategies would be mainly focused on executive functioning to include problem solving, planning and organization. Thank you very much for allowing me to provide the consultation on this patient. <ELECTRONICALLY SIGNED> By: Felipe Parisi, PhD 05/30/19 1405 [id number] Felipe Parisi, PhD /nt
[2019-05-30 19:09] VITALS: BP 109/59
--- NOTE | 2019-05-30 21:54 | NUR ---
PT RESTING IN BED UPON ARRIVAL TO SHIFT. PT DID CALL FOR HER MEDICATIONS AROUND 2100. PT REQUESTED ASSISTANCE TO AMBULATE WITH WALKER TO RESTROOM. GAIT STEADY AND SLOW. PT REQUESTED FOR SHOES TO BE PLACED ON PRIOR TO AMBULATION. PT VERBALIZED KNOWING HER MEDICATION NAMES AND PURPOSE. BLUNTED AFFECT, GOOD EYE CONTACT.
[2019-05-31 07:45] VITALS: BP 140/77
--- NOTE | 2019-05-31 10:07 | NUR ---
ASSUMED CARE OF PT AT 0700. PT IS A&OX4. IS ON ROOM AIR. DENIES PAIN. IS STABLE. IS UP WITH 1 ASSIST, GB, WALKER. FALL PRECAUTIONS & HOURLY ROUNDING MAINTAINED. LABS & VITALS REVIEWED. WILL CONTINUE TO MONITOR. PT IS UP IN CHAIR WATCHING TV. CALL LIGHT WITHIN REACH.
[2019-05-31 19:00] VITALS: BP 119/71
--- NOTE | 2019-06-01 02:34 | NUR ---
assumed care at approx 1900 05/31. pt alert and oriented x4, pleasant and cooperative. pt took hs meds with water tolerating well. pt up to bathroom to void with standby assist. pt appears to be sleeping soundly with hourly rounding checks. bed alarm on and call light in reach. will continue to monitor.
[2019-06-01 05:38] LABS: HEMATOCRIT 30.6 % (37.0-47.0); MCH 30.3 pg (26.0-34.0); MCHC 32.8 g/dL (28.0-37.0); MCV 92.3 fL (80.0-100.0); PLATELET COUNT 179 thou/uL (150-400); RBC 3.32 mil/uL (4.20-5.00); RDW 14.7 % (10.5-14.5); WBC 12.8 thou/uL (4.0-11.0)
[2019-06-01 05:54] LABS: CALCIUM 9.1 mg/dL (8.5-10.1); CREATININE 0.4 mg/dL (0.6-1.0); MAGNESIUM 1.8 mg/dL (1.8-2.4); POTASSIUM 3.5 mmol/L (3.5-5.1)
[2019-06-01 08:38] LABS: ABSOLUTE NEUTROPHILS 2.3 thou/uL (1.4-8.2); PLATELET ESTIMATE NORMAL
[2019-06-01 08:39] LABS: ANISOCYTOSIS 1+
[2019-06-01 09:01] VITALS: BP 128/66
--- NOTE | 2019-06-01 09:10 | NUR ---
ASSUMED CARE OF PT AT 0700. REPORTS DIDN'T SLEEP GOOD LAST NIGHT. WILL TALK WITH HALIMA FOR SLEEPING AID. LEFT UPPER ARM PICC LINE. MAY ASK HALIMA TO REMOVE TODAY SINCE PT NO LONGER NEEDS IT. PT IS A&OX4. IS ON ROOM AIR. DENIES PAIN. IS STABLE. IS UP WITH 1 ASSIST, GB, WALKER. UP TO DINNING ROOM ATE 100% BREAKFAST. PT CALLS OUT FOR MEDS PASS. FALL PRECAUTIONS & HOURLY ROUNDING MAINTAINED. LABS & VITALS REVIEWED. WILL CONTINUE TO MONITOR. PT IS UP IN CHAIR WATCHING TV. CALL LIGHT WITHIN REACH.
--- NOTE | 2019-06-01 14:33 | NUR ---
cm visited with pt at bedside, she up in recliner chair. discussed hh and list choices provided. " [facility]. referral to be sent to [facility].
--- NOTE | 2019-06-01 15:13 | NUR ---
dp sent home health referral to [facility], patient to dc 06/03/19. TY spoke with Kendra at [facility] they received referral and said she didn't see any reason why they couldn't accept patient.
[2019-06-01 20:00] VITALS: BP 121/74
[2019-06-01 20:06] VITALS: BP 121/74
[2019-06-01 21:00] VITALS: BP 134/72
[2019-06-01 21:10] VITALS: BP 134/72
--- NOTE | 2019-06-01 23:52 | NUR ---
PT ASSESSMENT DONE AND VSS. PT FELL AT 2000 WHILE AMBULATING AROUND HER ROOM. SHE TRIED TO MOVE THE GARBAGE CAN CLOSER TO THE BED AND FELL. CALLED FOR HELP VIA THE CALL LIGHT. THIS NURSE FOUND HER SITTING ON THE FLOOR IN FRONT OF HER RECLINER. PT WAS ALERT AND ORIENTED X 4. PT DENIED INJURY EXCEPT SMALL ABRASIONS TO BOTH ELBOWS. PT ABLE TO GET TO KNEES AND ASSISTED X 2 TO STAND UP AND GET INTO BED. FAMILY AND DR. BAIG WERE CALLED TO ALERT THEM. ORDERS RECEIVED. MED GIVEN AND WELL TOLERATED. FALL PRECAUTIONS IN PLACE. WILL CONTINUE TO MONITOR AND DO NEURO CHECKS ORDERED.
[2019-06-02 08:00] VITALS: BP 108/67
--- NOTE | 2019-06-02 09:55 | NUR ---
ASSUMED CARE OF PT AT 0700. REPORTS SLEEP BETTER WITH MELATONIN BUT BEING DISTURBED DURING NIGHT D/T HER LAST FALL LAST NIGHT. DENIES PAIN. JUST HAS LITTLE ABRASION ON BOTH ELBOWD. NO NEED OF TREATMENT AT THIS MOMENT. LEFT UPPER ARM PICC LINE REMOVED YESTERDAY BY IV TEAM. PT IS A&OX4. VSS ON RA. PT FEELS LITTLE DISAPPOINTED ABOUT HER FALL LAST NIGHT. STAFF OFFER ENCOURAGENTS AND SUPPORT. PT UP WITH 1 ASSIST, GB, WALKER. UP TO DINNING ROOM ATE 100% BREAKFAST. PT CALLS OUT FOR MEDS PASS. FALL PRECAUTIONS & HOURLY ROUNDING MAINTAINED. PT IS WORKING WITH PHYSICAL THERAPIST AT THIS MOMENT IN THE GYM.
--- NOTE | 2019-06-02 13:41 | NUR ---
team meeting, recommendation: move to apartment, have her call for medication. encouragement to take rest breaks, recommend life alert and or carry cell phone with her, dc 11th with [facility] ( pt,ot and nursing).
[2019-06-02 19:00] VITALS: BP 121/69
--- NOTE | 2019-06-02 21:24 | NUR ---
PT ASSESSMENT DONE AND VSS. MED GIVEN ORDERED AND WELL TOLERATED. FALL PRECAUTIONS IN PLACE. ASKED FOR SLEEP MED, MED GIVEN. FAMILY AT BS. WILL CONTINUE TO MONITOR.
[2019-06-03 08:10] VITALS: BP 122/73
[2019-06-03 11:45] VITALS: BP 122/73
--- NOTE | 2019-06-03 12:12 | NUR ---
ASSUMED CARES AT 0700. PT AWAKE, ALERT AND ORIENTED*4. DENIES PAIN. VITALS REMAIN STABLE. LS REMAIN CLEAR. HS STABLE, PEDAL PULSES 2/2. ABDOMEN SOFT AND ROUND, BS ACTIVE *4, LAST BM 06/02. DRESSING ON LEFT UPPER ARM WHERE PICC WAS REMOVED DC'D, NO BLEEDING NOTED, BRUISING NOTED AROUND SITE. PT IS NOW MODIFIED INDEPENDENT IN ROOM AND TOLERATES WELL. PARTICIPATED IN ALL THERAPIES. Q1H VISUAL CHECKS. CALL LIGHT WITHIN REACH.
[2019-06-03 19:15] VITALS: BP 113/68
--- NOTE | 2019-06-04 03:56 | NUR ---
ASSUMED CARE OF PT AT 1900HRS. PT IS AOX4 AND LETS NEEDS BE KNOWN. PT IS MODIFYED INDEPENDENT FALL PRECAUTION. PT CALLED OUT FOR HER PM MEDS APPROPRIATELY. VSS AND NO S/S OF ACUTE DISTRESS. PT WAS ABLE TO SLEEP PART OF THE SHIFT. WILL CONTINUE TO MONITOR.
--- NOTE | 2019-06-04 09:01 | NUR ---
ASSUMED CARE OF PT AT 0700. REPORTS SLEEP GOOD, TOOK MELATONIN LAST NIGHT. DENIES PAIN, N/V. PT IS A&OX4. VSS ON RA. PT M.I IN ROOM WITH 1 ASSIST, GERARDO, WALKER. ENCOURAGE PT TO BE UP IN DINNING FOR MEALS. PT CALLS OUT FOR MEDS PASS. FALL PRECAUTIONS & HOURLY ROUNDING MAINTAINED. PT IS WORKING WITH SPEECH THERAPIST AT THIS MOMENT. [facility]
--- NOTE | 2019-06-04 09:59 | NUR ---
Followup: diet has been upgraded to regular and pt eating 100% of meals now. Wts down about 6 lb from usual throughout extended acute and rehab stay but now stabilized at 122 lb. Likely discharge 06/05. Change status to low nutrition risk
[2019-06-04 10:00] VITALS: BP 113/57
[2019-06-04 21:08] VITALS: BP 133/66
--- NOTE | 2019-06-04 23:37 | NUR ---
PT ASSESSMENT COMPLETED AND VSS. MEDS GIVEN ORDERED AND WELL TOLERATED. MOD I IN ROOM AND STEADY. PT DENIES NEEDS. SLEEPING WELL. WILL CONTINUE TO MONITOR FREQUENTLY.
[2019-06-05 10:01] VITALS: BP 112/66
--- NOTE | 2019-06-05 10:24 | NUR ---
ASSUMED CARES AT 0700. PT AWAKE, ALERT AND ORIENTED*4. DENIES PAIN. VITALS REMAIN STABLE. PT REMAINS MODIFIED INDEPENDENT IN ROOM AND TOLERATES WELL. CALL APPROPRIATELY AND ON TIME FOR ALL HER MEDICATIONS. DC TEACHING TO BE COMPLETED WITH PATIENT PRIOR TO DC. Q1H VISUAL CHECKS. CALL LIGHT WITHIN REACH. FALL PRECAUTIONS IN PLACE
[2019-06-05] MEDS ORDERED: PREDNISONE 20 M20 MG PO (12:38)
[2019-06-05] MEDS ORDERED: CELLCEPT500 MG PO (12:39)
--- NOTE | 2019-06-05 13:19 | NUR ---
DISCHARGE ORDERS COMPLETED. PATIENT DISCHARGING TO HOME WITH [facility]. DISCHARGE/HH ORDERS AND DISCHARGE SUMMARY FAXED TO [facility] FOR [facility], VERIFIED RECEIVED. UNIT CM AWARE.
--- NOTE | 2019-06-26 13:30 | H ---
[facility] [place] [address] HISTORY AND PHYSICAL Name: ISAI FENTON Room #: 501-A [facility] IN ..#: [id number] Admission: 05/22/19 Attend Phys: Mega Bui MD Discharge: 06/05/19 Date of : 41 Report #: [id number] THIS REPORT FOR: //name// CC: Mega Bui Arturo Mccann DATE OF SERVICE: 05/22/2019 HISTORY OF PRESENT ILLNESS: This is a 73-year-old female who presented to the Emergency Department with worsening lower body weakness, increasing shortness of breath and new onset of diplopia. She was diagnosed with severe myasthenia gravis exacerbation. She was treated in the Intensive Care Unit. She was in acute respiratory failure and was mechanically ventilated from 05/10/2019 until 05/19/2019. When she was extubated, she was followed closely by Neurology. She underwent plasmapheresis x 15 days and continues on methylprednisone and CellCept. She was also on Mestinon with dose adjustments being made by Neurology. She eventually had a swallow evaluation, for which she passed her Dobbhoff and tube feedings were discontinued. Due to her debility, she is now admitted to inpatient rehab for physical, occupational and speech therapies. Today, the patient reports no vision changes. She denies headache or dizziness. She denies cough, shortness of air, chest pain. She denies nausea, abdominal pain or constipation. She did have a few days of loose stools that seem to be regulated themselves. She has had no trouble since her Jimenez catheter was removed, urinating. She denies any dysuria. PAST MEDICAL HISTORY: DICTATION ENDS HERE. <ELECTRONICALLY SIGNED> By: IRIS Bhakta 06/26/19 1330 [id number] IRIS Bhakta /nt
== END 2019-06-05 14:05 | disposition home health service (06) | DRG 56 ==
LOC: ENTRNSPT 06-05 14:00
PROVIDERS: Nurse Practitioner; ADMIT Physical Medicine & Rehabilitation
DX: G70.01 Myasthenia gravis with (acute) exacerbation (principal); J18.9 Pneumonia, unspecified organism; J96.21 Acute and chronic respiratory failure with hypoxia; J96.22 Acute and chronic respiratory failure with hypercapnia; E87.0 Hyperosmolality and hypernatremia; I10 Essential (primary) hypertension; R13.10 Dysphagia, unspecified; E78.5 Hyperlipidemia, unspecified; Z60.2 Problems related to living alone; G31.84 Mild cognitive impairment of uncertain or unknown etiology; D69.6 Thrombocytopenia, unspecified; R73.9 Hyperglycemia, unspecified; M19.90 Unspecified osteoarthritis, unspecified site; R53.81 Other malaise; E87.6 Hypokalemia; E83.42 Hypomagnesemia; G47.00 Insomnia, unspecified; Z85.6 Personal history of leukemia; Z90.11 Acquired absence of right breast and nipple; Z85.3 Personal history of malignant neoplasm of breast; Z88.8 Allergy status to other drugs, medicaments and biological substances; Z79.899 Other long term (current) drug therapy; Z79.4 Long term (current) use of insulin; Z23 Encounter for immunization
CPT/HCPCS: 10112

== ENCOUNTER → 2019-08-07 | Outpatient (CLI) | payer OTHER ==
[~2019-08-07] MED LIST changes: +ALBUTEROL2.5 MG/31 INH; +CELLCEPT500 MG PO; +CYMBALTA20 MG PO; +FAMOTIDINE20 MG/2 M2 IV PUSH; +MIRALAX17 GM PO; +PEDIA-LAX50 MG/15 M PER TUBE; +PREDNISONE 20 M20 MG PO; +PYRIDOSTIGMINE60 M1 PO; +SOLU-MEDRO40 MG/1 M1 IV PUSH
== END ==
LOC: RAD 09:45 → ULTRA 09:45 → RAD 11:43
DX: C50.911 Malignant neoplasm of unspecified site of right female breast (principal); R92.1 Mammographic calcification found on diagnostic imaging of breast; Z17.0 Estrogen receptor positive status [ER+]

== ENCOUNTER → 2020-08-08 | Outpatient (CLI) | payer OTHER | LOC: BC 10:08 | PROVIDERS: ATTEND Internal Medicine Hematology & Oncology | DX: Z08 Encounter for follow-up examination after completed treatment for malignant neoplasm (principal); R92.1 Mammographic calcification found on diagnostic imaging of breast; Z17.0 Estrogen receptor positive status [ER+]; Z90.11 Acquired absence of right breast and nipple; Z85.3 Personal history of malignant neoplasm of breast ==

== ENCOUNTER → 2021-08-16 | Outpatient (CLI) | payer OTHER | LOC: BC 09:32 | PROVIDERS: ATTEND Internal Medicine Hematology & Oncology | DX: Z12.31 Encounter for screening mammogram for malignant neoplasm of breast (principal); N64.89 Other specified disorders of breast ==

== ENCOUNTER → 2021-08-30 | Outpatient (CLI) | payer OTHER | LOC: ULTRA 13:14 | PROVIDERS: ATTEND Internal Medicine Hematology & Oncology | DX: N60.02 Solitary cyst of left breast (principal); C50.911 Malignant neoplasm of unspecified site of right female breast; R92.2 Inconclusive mammogram; Z17.0 Estrogen receptor positive status [ER+] ==